=== PATIENT | female | born 1955 | race African-American/Black ===

== ENCOUNTER 2018-03-11 12:20 | Inpatient (IN) | payer OTHER ==
[2018-03-11 14:07] VITALS: BMI 21.9
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
[2018-03-11] MEDS ORDERED: MAG HYDROX/AL HYDROX/SIMETH 30 ML UNIT-DOSE CUP PO PRN (16:52)
[2018-03-11] MEDS ORDERED: MENTHOL/PHENOL 1 EACH UD MM PRN (16:52)
[2018-03-11] MEDS ORDERED: P-EPHED 60MG/TRIPROLIDI 2.5MG TABLET PO PRN (16:52)
[2018-03-11] MEDS ORDERED: ACETAMINOPHEN 325 MG TABLET (FP) PO PRN (16:52)
[2018-03-11] MEDS ORDERED: LOPERAMIDE HCL 2 MG CAPSULE PO PRN (16:52)
[2018-03-11] MEDS ORDERED: MAGNESIUM HYDROX 2400MG/30ML ORAL SUSPENSION 30 ML CUP PO PRN (16:52)
[2018-03-11] MEDS ORDERED: MAGNESIUM CITRATE 300 ML BOTTLE PO PRN (16:52)
[2018-03-11] MEDS ORDERED: ALBUTEROL SO4 18 GM HFA INHALER IH PRN (16:54)
[2018-03-11] MEDS: metFORMIN HCL 500 MG TABLET (FP) PO SCH (18:52)
[2018-03-11] MEDS ORDERED: TUBERCULIN PPD 5 TU/0.1ML VIAL ID ONE (18:52)
[2018-03-11] MEDS: levETIRAcetam 500 MG TABLET (FP) PO SCH (21:55)
[2018-03-11] MEDS: GABAPENTIN 300 MG CAPSULE (FP) PO SCH (21:55)
[2018-03-11] MEDS: THIAMINE HCL 100 MG TABLET (FP) PO SCH (21:55)
[2018-03-11] MEDS: INSULIN (LEVEMIR) 100 UNITS/ML UNITS SQ SCH (21:56)
[2018-03-11] MEDS: CYCLOBENZAPRINE HCL 10 MG TABLET (FP) PO PRN (21:58)
[2018-03-11] MEDS ORDERED: MELATONIN 5 MG TABLETS PO PRN (22:00)
[2018-03-11 23:21] LABS: URINE APPEARANCE CLOUDY; URINE BILIRUBIN NEGATIVE (<2.0 mg/dL); URINE COLOR DKYELLOW; URINE GLUCOSE (UA) NEGATIVE (NEGATIVE); URINE KETONE NEGATIVE (NEGATIVE); URINE NITRITE NEGATIVE (NEGATIVE); URINE PROTEIN NEGATIVE (NEGATIVE); URINE UROBILINOGEN NEGATIVE mg/dL (0.2-1.0)
[2018-03-11 23:25] LABS: URINE LEUK ESTERASE 3+ (NEGATIVE)
[2018-03-11 23:33] LABS: EPI CELLS MODERATE /HPF (FEW); URINE BACTERIA RARE /hpf (NONE SEEN); URINE HYALINE CAST 2 /lpf; URINE MUCUS RARE
[2018-03-12] MEDS: GABAPENTIN 300 MG CAPSULE (FP) PO SCH ×3 (07:00→22:23)
[2018-03-12] MEDS: metFORMIN HCL 500 MG TABLET (FP) PO SCH ×2 (07:01→17:09)
--- NOTE | 2018-03-12 08:47 | EKG ---
Test Reason : Blood Pressure : / mmHG Vent. Rate : 084 BPM Atrial Rate : 084 BPM P-R Int : 162 ms QRS Dur : 080 ms QT Int : 360 ms P-R-T Axes : 084 066 075 degrees QTc Int : 425 ms NORMAL SINUS RHYTHM RIGHT ATRIAL ENLARGEMENT SEPTAL INFARCT , AGE UNDETERMINED ABNORMAL ECG NO PREVIOUS ECGS AVAILABLE Confirmed by VIVI VILLAFANA MD ([id number]) on 03/12/2018 8:47:24 AM Referred By: Confirmed By:VIVI VILLAFANA MD
[2018-03-12] MEDS: INSULIN SLIDING SCALE (NOVOLOG) 1 VIAL SQ SCH ×2 (09:02→17:09)
[2018-03-12] MEDS: levETIRAcetam 500 MG TABLET (FP) PO SCH ×2 (10:34→22:25)
[2018-03-12] MEDS: PRENATAL VITAMINS W/ FOLIC ACID TABLET (FP) PO SCH (10:34)
[2018-03-12] MEDS: LISINOPRIL 10 MG TABLET (FP) PO SCH (10:34)
[2018-03-12] MEDS: CYCLOBENZAPRINE HCL 10 MG TABLET (FP) PO PRN ×2 (10:35→18:13)
[2018-03-12 12:12] LABS: HEMATOCRIT 23.9 % (32.4-45.2); HEMOGLOBIN 7.3 GM/dL (10.7-15.3); MCH 24.8 pg (25.7-33.7); MCHC 30.5 g/dl (32.0-36.0); MEAN CELL VOLUME 81.2 fl (80-96); MEAN PLT VOLUME 8.1 fl (7.5-11.1); PLATELET COUNT 440 K/MM3 (134-434); RBC 2.94 M/mm3 (3.60-5.2); RDW 20.2 % (11.6-15.6); WHITE BLOOD COUNT 7.7 K/mm3 (4.0-10.0)
[2018-03-12 12:44] LABS: ANION GAP 8 (8-16); BILIRUBIN,TOTAL 0.3 mg/dL (0.2-1.0); BLOOD UREA NITROGEN 20 mg/dL (7-18); CALCIUM 8.7 mg/dL (8.5-10.1); CHLORIDE 108 mmol/L (98-107); CO2 28 mmol/L (21-32); CREATININE 0.5 mg/dL (0.55-1.02); GLUCOSE,RANDOM 65 mg/dL (74-106); POTASSIUM 4.5 mmol/L (3.5-5.1); SGOT/AST 14 U/L (15-37); SGPT/ALT 17 U/L (12-78); SODIUM 144 mmol/L (136-145); TOT PROT 5.7 g/dl (6.4-8.2)
[2018-03-12 12:45] LABS: ALK PHOS 56 U/L (45-117)
[2018-03-12 13:08] LABS: SICKLE CELL SCREEN NEG (NEGATIVE)
--- NOTE | 2018-03-12 15:51 | PN ---
S Progress Note Note: called to enter Trazodone 100 mg po hs, order placed, confirmed as per reconciliation list
[2018-03-12] MEDS: INSULIN (LEVEMIR) 100 UNITS/ML UNITS SQ SCH (22:21)
[2018-03-12] MEDS: THIAMINE HCL 100 MG TABLET (FP) PO SCH (22:23)
[2018-03-12] MEDS: traZODone HCL 100 MG TABLET (FP) PO SCH (22:25)
[2018-03-12] MEDS: guaiFENesin/D-METHORPHAN HB 10 ML UNIT-DOSE CUPS PO PRN (22:27)
[2018-03-12] MEDS ORDERED: PT OWN MED DRAWER 7, Y5N ONE (22:31)
[2018-03-13] MEDS: GABAPENTIN 300 MG CAPSULE (FP) PO SCH ×3 (06:57→22:01)
[2018-03-13] MEDS: CYCLOBENZAPRINE HCL 10 MG TABLET (FP) PO PRN ×2 (06:59→17:44)
[2018-03-13] MEDS: metFORMIN HCL 500 MG TABLET (FP) PO SCH ×2 (07:00→17:10)
[2018-03-13] MEDS: INSULIN SLIDING SCALE (NOVOLOG) 1 VIAL SQ SCH ×2 (07:02→17:10)
[2018-03-13] MEDS: PRENATAL VITAMINS W/ FOLIC ACID TABLET (FP) PO SCH (10:21)
[2018-03-13] MEDS: levETIRAcetam 500 MG TABLET (FP) PO SCH ×2 (10:21→22:01)
[2018-03-13] MEDS: IBUPROFEN 400 MG TABLET (FP) PO PRN (10:22)
[2018-03-13] MEDS: LISINOPRIL 10 MG TABLET (FP) PO SCH (10:22)
[2018-03-13] MEDS: THIAMINE HCL 100 MG TABLET (FP) PO SCH (22:01)
[2018-03-13] MEDS: traZODone HCL 100 MG TABLET (FP) PO SCH (22:01)
[2018-03-13] MEDS: INSULIN (LEVEMIR) 100 UNITS/ML UNITS SQ SCH (22:02)
[2018-03-13] MEDS: guaiFENesin/D-METHORPHAN HB 10 ML UNIT-DOSE CUPS PO PRN (22:20)
[2018-03-14] MEDS: GABAPENTIN 300 MG CAPSULE (FP) PO SCH ×3 (06:40→22:02)
[2018-03-14] MEDS: CYCLOBENZAPRINE HCL 10 MG TABLET (FP) PO PRN ×2 (06:41→17:09)
[2018-03-14] MEDS: INSULIN SLIDING SCALE (NOVOLOG) 1 VIAL SQ SCH ×2 (06:41→17:10)
[2018-03-14] MEDS: metFORMIN HCL 500 MG TABLET (FP) PO SCH ×2 (07:54→17:09)
[2018-03-14] MEDS: levETIRAcetam 500 MG TABLET (FP) PO SCH ×2 (09:37→22:02)
[2018-03-14] MEDS: LISINOPRIL 10 MG TABLET (FP) PO SCH (09:37)
[2018-03-14] MEDS: PRENATAL VITAMINS W/ FOLIC ACID TABLET (FP) PO SCH (09:37)
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
[2018-03-14] MEDS: IBUPROFEN 400 MG TABLET (FP) PO PRN (14:37)
[2018-03-14] MEDS: hydrOXYzine PAMOATE 50 MG CAPSULE (FP) PO PRN ×2 (14:37→22:04)
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
[2018-03-14] MEDS: THIAMINE HCL 100 MG TABLET (FP) PO SCH (22:02)
[2018-03-14] MEDS: traZODone HCL 50 MG TABLET (FP) PO SCH (22:02)
[2018-03-14] MEDS: INSULIN (LEVEMIR) 100 UNITS/ML UNITS SQ SCH (22:03)
[2018-03-14] MEDS: guaiFENesin/D-METHORPHAN HB 10 ML UNIT-DOSE CUPS PO PRN (22:05)
[2018-03-15] MEDS: GABAPENTIN 300 MG CAPSULE (FP) PO SCH ×3 (06:28→21:52)
[2018-03-15] MEDS: INSULIN SLIDING SCALE (NOVOLOG) 1 VIAL SQ SCH ×2 (06:29→16:43)
[2018-03-15] MEDS: metFORMIN HCL 500 MG TABLET (FP) PO SCH ×2 (07:11→16:42)
[2018-03-15] MEDS: PRENATAL VITAMINS W/ FOLIC ACID TABLET (FP) PO SCH (09:44)
[2018-03-15] MEDS: levETIRAcetam 500 MG TABLET (FP) PO SCH ×2 (09:44→21:52)
[2018-03-15] MEDS: LISINOPRIL 10 MG TABLET (FP) PO SCH (09:44)
--- NOTE | 2018-03-15 13:40 | PN ---
[facility] Progress Note Note: Patient with consistently low blood pressure on lisinopril 10 mg and vertigo. Vital Signs (72 hours) 03/13/18 03/13/18 03/13/18 00:30 03:30 07:18 Temperature 97.8 F Pulse Rate 98 H Respiratory 18 18 18 Rate Blood Pressure 101/59 03/13/18 03/13/18 03/13/18 10:00 17:05 17:29 Temperature 97.9 F Pulse Rate 101 H 94 H 97 H Respiratory 18 Rate Blood Pressure 107/66 98/58 106/61 03/14/18 03/14/18 03/14/18 00:30 07:18 09:25 Temperature 97.7 F Pulse Rate 98 H 76 Respiratory 16 18 Rate Blood Pressure 94/55 93/56 03/14/18 03/15/18 03/15/18 14:47 03:30 07:02 Temperature 97.8 F Pulse Rate 92 H 110 H Respiratory 16 16 Rate Blood Pressure 100/61 95/52 03/15/18 09:20 Temperature Pulse Rate 80 Respiratory Rate Blood Pressure 98/60 Laboratory Last Values WBC 7.7 K/mm3 (4.0-10.0) 03/12/18 09:00 RBC 2.94 M/mm3 (3.60-5.2) L 03/12/18 09:00 Hgb 7.3 GM/dL (10.7-15.3) L 03/12/18 09:00 Hct 23.9 % (32.4-45.2) L 03/12/18 09:00 MCV 81.2 fl (80-96) 03/12/18 09:00 MCH 24.8 pg (25.7-33.7) L 03/12/18 09:00 MCHC 30.5 g/dl (32.0-36.0) L 03/12/18 09:00 RDW 20.2 % (11.6-15.6) H 03/12/18 09:00 Plt Count 440 K/MM3 (134-434) H 03/12/18 09:00 MPV 8.1 fl (7.5-11.1) 03/12/18 09:00 Sickle Cell Screen Neg (NEGATIVE) 03/12/18 09:00 Sodium 144 mmol/L (136-145) 03/12/18 09:00 Potassium 4.5 mmol/L (3.5-5.1) 03/12/18 09:00 Chloride 108 mmol/L (98-107) H 03/12/18 09:00 Carbon Dioxide 28 mmol/L (21-32) 03/12/18 09:00 Anion Gap 8 (8-16) 03/12/18 09:00 BUN 20 mg/dL (7-18) H 03/12/18 09:00 Creatinine 0.5 mg/dL (0.55-1.02) L 03/12/18 09:00 Creat Clearance w eGFR > 60 (>60) 03/12/18 09:00 POC Glucometer 82 UNITS (80-120) 03/15/18 06:28 Random Glucose 65 mg/dL (74-106) L 03/12/18 09:00 Calcium 8.7 mg/dL (8.5-10.1) 03/12/18 09:00 Total Bilirubin 0.3 mg/dL (0.2-1.0) 03/12/18 09:00 AST 14 U/L (15-37) L 03/12/18 09:00 ALT 17 U/L (12-78) 03/12/18 09:00 Alkaline Phosphatase 56 U/L (45-117) 03/12/18 09:00 Total Protein 5.7 g/dl (6.4-8.2) L 03/12/18 09:00 Albumin 3.0 g/dl (3.4-5.0) L 03/12/18 09:00 Urine Color Dkyellow 03/11/18 19:09 Urine Appearance Cloudy 03/11/18 19:09 Urine pH 5.0 (5.0-8.0) 03/11/18 19:09 Ur Specific [place] 1.026 (1.001-1.035) 03/11/18 19:09 Urine Protein Negative (NEGATIVE) 03/11/18 19:09 Urine Glucose (UA) Negative (NEGATIVE) 03/11/18 19:09 Urine Ketones Negative (NEGATIVE) 03/11/18 19:09 Urine Blood Negative (NEGATIVE) 03/11/18 19:09 Urine Nitrite Negative (NEGATIVE) 03/11/18 19:09 Urine Bilirubin Negative (<2.0 mg/dL) 03/11/18 19:09 Urine Urobilinogen Negative mg/dL (0.2-1.0) 03/11/18 19:09 Ur Leukocyte Esterase 3+ (NEGATIVE) H 03/11/18 19:09 Urine WBC (Auto) 27 /hpf (3-5) 03/11/18 19:09 Urine RBC (Auto) 2 /hpf (0-3) 03/11/18 19:09 Ur Epithelial Cells Moderate /HPF (FEW) 03/11/18 19:09 Urine Bacteria Rare /hpf (NONE SEEN) 03/11/18 19:09 Hyaline Casts 2 /lpf 03/11/18 19:09 Urine Mucus Rare 03/11/18 19:09 Levetiracetam 9.1 MCG/ML (10.0-40.0) L 03/12/18 09:30 RPR Titer Nonreactive (NONREACTIVE) 03/12/18 09:00 HIV 1&2 Antibody Screen Negative 03/12/18 09:00 HIV P24 Antigen Negative 03/12/18 09:00 Patient's medications reviewed. Lisinopril changed from 10 mg to 5mg starting . D/c flexeril d/t increase fall risk in elderly, change to Tizanidine 2mg TID PRN for back pain. Abnormal labs: repeat CBC, keppra and urine culture. x-ray results pending fall risk precautions continue to monitor
[2018-03-15] MEDS ORDERED: INSULIN (NOVOLOG) ASPART 100 UNITS/ML 10ML VIAL ONE (16:45)
[2018-03-15] MEDS: hydrOXYzine PAMOATE 50 MG CAPSULE (FP) PO PRN ×2 (16:46→21:53)
[2018-03-15] MEDS: TIZANIDINE HCL 2 MG TABLET PO PRN (16:46)
[2018-03-15] MEDS: traZODone HCL 50 MG TABLET (FP) PO SCH (21:52)
[2018-03-15] MEDS: THIAMINE HCL 100 MG TABLET (FP) PO SCH (21:52)
[2018-03-15] MEDS: guaiFENesin/D-METHORPHAN HB 10 ML UNIT-DOSE CUPS PO PRN (21:55)
[2018-03-15] MEDS: IBUPROFEN 400 MG TABLET (FP) PO PRN (21:55)
[2018-03-15] MEDS: INSULIN (LEVEMIR) 100 UNITS/ML UNITS SQ SCH (22:16)
[2018-03-16] MEDS: GABAPENTIN 300 MG CAPSULE (FP) PO SCH ×2 (06:44→13:36)
[2018-03-16] MEDS: INSULIN SLIDING SCALE (NOVOLOG) 1 VIAL SQ SCH ×2 (06:45→17:39)
[2018-03-16] MEDS: metFORMIN HCL 500 MG TABLET (FP) PO SCH ×2 (07:56→17:39)
[2018-03-16] MEDS: PRENATAL VITAMINS W/ FOLIC ACID TABLET (FP) PO SCH (09:15)
[2018-03-16] MEDS: levETIRAcetam 500 MG TABLET (FP) PO SCH (09:15)
[2018-03-16] MEDS: hydrOXYzine PAMOATE 50 MG CAPSULE (FP) PO PRN (09:15)
[2018-03-16] MEDS: TIZANIDINE HCL 2 MG TABLET PO PRN (09:15)
[2018-03-16] MEDS ORDERED: LISINOPRIL 5 MG TABLET (FP) PO SCH (10:00)
[2018-03-16] MEDS ORDERED: diphenhydrAMINE HCL 50 MG CAPSULE PO PRN ×2 (10:31→10:33)
[2018-03-16 10:50] LABS: BASO % 1.2 % (0-2.0); HEMATOCRIT 21.9 % (32.4-45.2); LYMPH % 23.4 % (8-40); MCH 25.1 pg (25.7-33.7); MCHC 31.4 g/dl (32.0-36.0); MEAN CELL VOLUME 80.2 fl (80-96); MEAN PLT VOLUME 7.8 fl (7.5-11.1); MONO % 13.8 % (3.8-10.2); NEUT % 58.6 % (42.8-82.8); PLATELET COUNT 404 K/MM3 (134-434); RBC 2.73 M/mm3 (3.60-5.2); RDW 20.6 % (11.6-15.6); WHITE BLOOD COUNT 6.2 K/mm3 (4.0-10.0)
[2018-03-16 11:37] LABS: HEMOGLOBIN 6.9 GM/dL (10.7-15.3)
--- NOTE | 2018-03-16 12:54 | PN ---
[facility] Progress Note Note: Notified by RN critical lab called with HGB 6.9. Laboratory Tests 03/11/18 03/11/18 03/11/18 16:24 18:49 19:09 WBC RBC Hgb Hct MCV MCH MCHC RDW Plt Count MPV Neutrophils % Lymphocytes % Monocytes % Eosinophils % Basophils % Nucleated RBC % Sickle Cell Screen Sodium Potassium Chloride Carbon Dioxide Anion Gap BUN Creatinine Creat Clearance w eGFR POC Glucometer 222 209 Random Glucose Calcium Total Bilirubin AST ALT Alkaline Phosphatase Total Protein Albumin Urine Color Dkyellow Urine Appearance Cloudy Urine pH 5.0 Ur Specific [place] 1.026 Urine Protein Negative Urine Glucose (UA) Negative Urine Ketones Negative Urine Blood Negative Urine Nitrite Negative Urine Bilirubin Negative Urine Urobilinogen Negative Ur Leukocyte Esterase 3+ H Urine WBC (Auto) 27 Urine RBC (Auto) 2 Ur Epithelial Cells Moderate Urine Bacteria Rare Hyaline Casts 2 Urine Mucus Rare Levetiracetam RPR Titer HIV 1&2 Antibody Screen HIV P24 Antigen 03/11/18 03/12/18 03/12/18 21:54 06:59 09:00 WBC 7.7 RBC 2.94 L Hgb 7.3 L Hct 23.9 L MCV 81.2 MCH 24.8 L MCHC 30.5 L RDW 20.2 H Plt Count 440 H MPV 8.1 Neutrophils % Lymphocytes % Monocytes % Eosinophils % Basophils % Nucleated RBC % Sickle Cell Screen Neg Sodium Potassium Chloride Carbon Dioxide Anion Gap BUN Creatinine Creat Clearance w eGFR POC Glucometer 156 102 Random Glucose Calcium Total Bilirubin AST ALT Alkaline Phosphatase Total Protein Albumin Urine Color Urine Appearance Urine pH Ur Specific [place] Urine Protein Urine Glucose (UA) Urine Ketones Urine Blood Urine Nitrite Urine Bilirubin Urine Urobilinogen Ur Leukocyte Esterase Urine WBC (Auto) Urine RBC (Auto) Ur Epithelial Cells Urine Bacteria Hyaline Casts Urine Mucus Levetiracetam RPR Titer HIV 1&2 Antibody Screen HIV P24 Antigen 03/12/18 03/12/18 03/12/18 09:00 09:00 09:00 WBC RBC Hgb Hct MCV MCH MCHC RDW Plt Count MPV Neutrophils % Lymphocytes % Monocytes % Eosinophils % Basophils % Nucleated RBC % Sickle Cell Screen Sodium 144 Potassium 4.5 Chloride 108 H Carbon Dioxide 28 Anion Gap 8 BUN 20 H Creatinine 0.5 L Creat Clearance w eGFR > 60 POC Glucometer Random Glucose 65 L Calcium 8.7 Total Bilirubin 0.3 AST 14 L ALT 17 Alkaline Phosphatase 56 Total Protein 5.7 L Albumin 3.0 L Urine Color Urine Appearance Urine pH Ur Specific [place] Urine Protein Urine Glucose (UA) Urine Ketones Urine Blood Urine Nitrite Urine Bilirubin Urine Urobilinogen Ur Leukocyte Esterase Urine WBC (Auto) Urine RBC (Auto) Ur Epithelial Cells Urine Bacteria Hyaline Casts Urine Mucus Levetiracetam RPR Titer Nonreactive HIV 1&2 Antibody Screen Negative HIV P24 Antigen Negative 03/12/18 03/12/18 03/12/18 09:30 17:06 22:21 WBC RBC Hgb Hct MCV MCH MCHC RDW Plt Count MPV Neutrophils % Lymphocytes % Monocytes % Eosinophils % Basophils % Nucleated RBC % Sickle Cell Screen Sodium Potassium Chloride Carbon Dioxide Anion Gap BUN Creatinine Creat Clearance w eGFR POC Glucometer 145 166 Random Glucose Calcium Total Bilirubin AST ALT Alkaline Phosphatase Total Protein Albumin Urine Color Urine Appearance Urine pH Ur Specific [place] Urine Protein Urine Glucose (UA) Urine Ketones Urine Blood Urine Nitrite Urine Bilirubin Urine Urobilinogen Ur Leukocyte Esterase Urine WBC (Auto) Urine RBC (Auto) Ur Epithelial Cells Urine Bacteria Hyaline Casts Urine Mucus Levetiracetam 9.1 L RPR Titer HIV 1&2 Antibody Screen HIV P24 Antigen 03/13/18 03/13/18 03/13/18 06:56 16:43 22:00 WBC RBC Hgb Hct MCV MCH MCHC RDW Plt Count MPV Neutrophils % Lymphocytes % Monocytes % Eosinophils % Basophils % Nucleated RBC % Sickle Cell Screen Sodium Potassium Chloride Carbon Dioxide Anion Gap BUN Creatinine Creat Clearance w eGFR POC Glucometer 86 150 190 Random Glucose Calcium Total Bilirubin AST ALT Alkaline Phosphatase Total Protein Albumin Urine Color Urine Appearance Urine pH Ur Specific [place] Urine Protein Urine Glucose (UA) Urine Ketones Urine Blood Urine Nitrite Urine Bilirubin Urine Urobilinogen Ur Leukocyte Esterase Urine WBC (Auto) Urine RBC (Auto) Ur Epithelial Cells Urine Bacteria Hyaline Casts Urine Mucus Levetiracetam RPR Titer HIV 1&2 Antibody Screen HIV P24 Antigen 03/14/18 03/14/18 03/14/18 06:39 17:05 22:01 WBC RBC Hgb Hct MCV MCH MCHC RDW Plt Count MPV Neutrophils % Lymphocytes % Monocytes % Eosinophils % Basophils % Nucleated RBC % Sickle Cell Screen Sodium Potassium Chloride Carbon Dioxide Anion Gap BUN Creatinine Creat Clearance w eGFR POC Glucometer 149 144 155 Random Glucose Calcium Total Bilirubin AST ALT Alkaline Phosphatase Total Protein Albumin Urine Color Urine Appearance Urine pH Ur Specific [place] Urine Protein Urine Glucose (UA) Urine Ketones Urine Blood Urine Nitrite Urine Bilirubin Urine Urobilinogen Ur Leukocyte Esterase Urine WBC (Auto) Urine RBC (Auto) Ur Epithelial Cells Urine Bacteria Hyaline Casts Urine Mucus Levetiracetam RPR Titer HIV 1&2 Antibody Screen HIV P24 Antigen 03/15/18 03/15/18 03/15/18 06:28 16:42 21:50 WBC RBC Hgb Hct MCV MCH MCHC RDW Plt Count MPV Neutrophils % Lymphocytes % Monocytes % Eosinophils % Basophils % Nucleated RBC % Sickle Cell Screen Sodium Potassium Chloride Carbon Dioxide Anion Gap BUN Creatinine Creat Clearance w eGFR POC Glucometer 82 156 205 Random Glucose Calcium Total Bilirubin AST ALT Alkaline Phosphatase Total Protein Albumin Urine Color Urine Appearance Urine pH Ur Specific [place] Urine Protein Urine Glucose (UA) Urine Ketones Urine Blood Urine Nitrite Urine Bilirubin Urine Urobilinogen Ur Leukocyte Esterase Urine WBC (Auto) Urine RBC (Auto) Ur Epithelial Cells Urine Bacteria Hyaline Casts Urine Mucus Levetiracetam RPR Titer HIV 1&2 Antibody Screen HIV P24 Antigen 03/16/18 03/16/18 06:43 07:30 WBC 6.2 RBC 2.73 L Hgb 6.9 L* Hct 21.9 L MCV 80.2 MCH 25.1 L MCHC 31.4 L RDW 20.6 H Plt Count 404 MPV 7.8 Neutrophils % 58.6 Lymphocytes % 23.4 Monocytes % 13.8 H Eosinophils % 3.0 Basophils % 1.2 Nucleated RBC % 1 H Sickle Cell Screen Sodium Potassium Chloride Carbon Dioxide Anion Gap BUN Creatinine Creat Clearance w eGFR POC Glucometer 132 Random Glucose Calcium Total Bilirubin AST ALT Alkaline Phosphatase Total Protein Albumin Urine Color Urine Appearance Urine pH Ur Specific [place] Urine Protein Urine Glucose (UA) Urine Ketones Urine Blood Urine Nitrite Urine Bilirubin Urine Urobilinogen Ur Leukocyte Esterase Urine WBC (Auto) Urine RBC (Auto) Ur Epithelial Cells Urine Bacteria Hyaline Casts Urine Mucus Levetiracetam RPR Titer HIV 1&2 Antibody Screen HIV P24 Antigen Vital Signs Temperature 97.9 F 03/16/18 07:23 Pulse Rate 105 H 03/16/18 10:00 Respiratory Rate 18 03/16/18 07:23 Blood Pressure 114/65 03/16/18 10:00 O2 Sat by Pulse Oximetry (%) Subj: Patient denies CP, SOB, Dizziness and headache. Obj: General: alert and oriented x3. In no acute distress. Ambulating within unit with cane. Skin: warm and dry and intact Car: S1S2 Resp: CTA BL A/P Critically low Hgb 6.9 Anemia Patient transferred to [facility] [place] ER for evaluation Report given to Dr. Calhoun
[2018-03-16 13:01] VITALS: BP 115/66; PULSE 101; TEMP 97.5
[2018-03-16 14:09] LABS: ANISOCYTOSIS 1+; PLATELET ESTIMATE NORMAL
== END 2018-03-16 20:40 | disposition short-term general hospital (02) | DRG 772 ==
LOC: YASAS 12:20 → Y3E 17:29
PROVIDERS: ADMIT Psychiatry & Neurology Psychiatry; ATTEND Psychiatry & Neurology Psychiatry
PROC: HZ42ZZZ Group Counseling for Substance Abuse Treatment, Cognitive-Behavioral (ICD-10-PCS; principal; 2018-03-11)
DX: F11.20 Opioid dependence, uncomplicated (principal); F41.9 Anxiety disorder, unspecified; I10 Essential (primary) hypertension; E11.9 Type 2 diabetes mellitus without complications; Z79.4 Long term (current) use of insulin; K21.9 Gastro-esophageal reflux disease without esophagitis; K86.89 Other specified diseases of pancreas; D64.9 Anemia, unspecified; G40.909 Epilepsy, unspecified, not intractable, without status epilepticus; Z63.4 Disappearance and death of family member
CPT/HCPCS: 36415; 73110-TC-RT-FY; 73130-TC-RT-FY; 80053; 81003; 81015; 82962; 85025; 85027; 85660; 86593; 87086; 87389; 93005; 93010

== ENCOUNTER 2018-03-16 13:32 | Inpatient (IN) | payer OTHER ==
--- NOTE | 2018-03-16 13:46 | PDOC ---
History of Present Illness - General Stated Complaint: Revisit, Lab Variance Time Seen by Provider: 03/16/18 13:46 - History of Present Illness Initial Comments: 03/16/18 13:48 Ms. Goldstein is a 62 yo female w/ pmh of opioid dependence, heroin abuse, COPD, DM, HTN, seizure disorder, Pancreatic mass, cholecystectomy, hysterectomy, vulvar skin cancer, and GERD who [facility] after she was found to have anemia today with Hg 6.9. Patient reports she has had "over 30 transfusions " in the past for anemia and been evaluated several times however no one has been able to find a cause. Ms. Goldstein further reports she has had generalized weakness over the past couple of days with frontal headache and shortness of breath both at rest and on exertion. She further endorses left sided abdominal pain, burning with urination, and increased frequency along with dark stools recently. The patient denies chest pain and dizziness. Denies fever, chills, nausea, vomit , diarrhea and constipation. Allergies: Penicillin Past History - Past Medical History Allergies/Adverse Reactions: Allergies Allergy/AdvReac Type Severity Reaction Status Date / Time tomato Allergy Severe Verified 03/11/18 16:57 Penicillins Allergy Intermediate Cough Verified 03/11/18 16:52 Home Medications: Ambulatory Orders Albuterol Sulfate Inhaler - [Ventolin Hfa Inhaler -] 2 inh PO Q4H PRN 03/11/18 Gabapentin [Neurontin] 600 mg PO TID 03/11/18 Insulin Detemir [Levemir Flextouch] 25 unit SQ HS 03/11/18 Ipratropium/Albuterol Sulfate [Combivent Respimat Inhal [place]] 4 gm IH BID 03/11 Lisinopril 10 mg PO DAILY 03/11/18 Metformin HCl [Glucophage] 500 mg PO BID 03/11/18 Trazodone HCl 100 mg PO HS 03/11/18 levETIRAcetam [Keppra -] 500 mg PO BID 03/11/18 Anemia: Yes (Fe supplement) Asthma: No Cancer: No Cardiac Disorders: No CVA: No COPD: Yes CHF: No Dementia: No Diabetes: Yes (dx 15 years) GI Disorders: Yes (Cholecystectomy) Disorders: Yes (endometriosis) HTN: Yes Hypercholesterolemia: No Kidney Stones: No Liver Disease: No Seizures: Yes (since chilhood) Thyroid Disease: No - Surgical History Abdominal Surgery: No Appendectomy: No Cardiac Surgery: No Cholecystectomy: Yes () Lung Surgery: No Neurologic Surgery: No Orthopedic Surgery: No - Reproductive History PID: No - Suicide/Smoking/Psychosocial Hx Smoking History: Former smoker Have you smoked in the past 12 months: No Hx Alcohol Use: No Drug/Substance Use Hx: Yes Substance Use Type: Heroin (7 bags daily.) Hx Substance Use Treatment: No Review of Systems - Review of Systems Comments:: 03/16/18 13:48 GENERAL/CONSTITUTIONAL: +Generalized weakness. No fever or chills. HEAD, EYES, EARS, NOSE AND THROAT: No change in vision. No ear pain or discharge. No sore throat. CARDIOVASCULAR: +Shortness of breath w/ exertion and at rest. No chest pain RESPIRATORY: No cough, wheezing, or hemoptysis. GASTROINTESTINAL: +Left sided abdominal pain. No nausea, vomiting, diarrhea or constipation. GENITOURINARY: +Recent frequency and dysuria MUSCULOSKELETAL: No joint or muscle swelling or pain. No neck or back pain. SKIN: No rash NEUROLOGIC: +Midline headache. No vertigo, loss of consciousness, or change in strength/sensation. ENDOCRINE: No increased thirst. No abnormal weight change HEMATOLOGIC/LYMPHATIC: +Known anemia. No easy bleeding or history of blood clots. ALLERGIC/IMMUNOLOGIC: No hives or skin allergy. *Physical Exam - Physical Exam Comments: 03/16/18 13:48 GENERAL: Awake, alert, and fully oriented, in no acute distress HEAD: No signs of trauma, normocephalic, atraumatic EYES: PERRLA, EOMI, sclera anicteric, conjunctiva clear ENT: Auricles normal inspection, hearing grossly normal, nares patent, oropharynx clear without exudates. Moist mucosa NECK: Normal ROM, supple, no lymphadenopathy, JVD, or masses LUNGS: No distress, speaks full sentences, clear to auscultation bilaterally HEART: Regular rate and rhythm, normal S1 and S2, no murmurs, rubs or gallops, peripheral pulses normal and equal bilaterally. ABDOMEN: +Left sided abdominal TTP. Soft, normoactive bowel sounds. No guarding , no rebound. No masses EXTREMITIES: Normal inspection, Normal range of motion, no edema. No clubbing or cyanosis. NEUROLOGICAL: Cranial nerves II through XII grossly intact. Normal speech, normal gait, no focal sensorimotor deficits SKIN: Warm, Dry, normal turgor, no rashes or lesions noted. ED Treatment Course - LABORATORY CBC & Chemistry Diagram: 03/16/18 14:45 03/16/18 14:45 Medical Decision Making - Medical Decision Making 03/16/18 14:32 Ms. Goldstein is a 62 yo female w/ pmh as described who presents for evaluation of anemia noted at rehab earlier today. Corresponding workup begun to confirm and r /o active bleeding at this time. 03/16/18 17:40 Patient noted to be anemic w/ H/H 6.8/21.9. Retype sent to lab and [address] abdomen negative for acute process. Patient currently being transfused; admitting to observation for further evaluation. 03/16/18 18:04 Patient admitted for observation. Laboratory Results - last 24 hr 03/16/18 03/16/18 03/16/18 14:19 14:45 14:45 WBC 7.1 RBC 2.73 L Hgb 6.8 L* Hct 21.9 L MCV 80.2 MCH 25.1 L MCHC 31.2 L RDW 20.8 H Plt Count 377 MPV 7.6 Neutrophils % 65.5 Lymphocytes % 17.2 D Monocytes % 13.8 H Eosinophils % 2.5 Basophils % 1.0 Nucleated RBC % 1 H PT with INR INR PTT (Actin FS) Sodium 142 Potassium 4.2 Chloride 107 Carbon Dioxide 32 Anion Gap 3 L BUN 18 Creatinine 0.6 Creat Clearance w eGFR > 60 Random Glucose 106 Calcium 8.4 L Total Bilirubin 0.1 L D AST 10 L ALT 15 Alkaline Phosphatase 68 Total Protein 5.5 L Albumin 2.9 L Urine Color Urine Appearance Urine pH Ur Specific [place] Urine Protein Urine Glucose (UA) Urine Ketones Urine Blood Urine Nitrite Urine Bilirubin Urine Urobilinogen Ur Leukocyte Esterase Stool Occult Blood Negative Blood Type Antibody Screen Crossmatch 03/16/18 03/16/18 03/16/18 14:45 14:45 15:24 WBC RBC Hgb Hct MCV MCH MCHC RDW Plt Count MPV Neutrophils % Lymphocytes % Monocytes % Eosinophils % Basophils % Nucleated RBC % PT with INR 10.70 INR 0.95 PTT (Actin FS) 29.1 Sodium Potassium Chloride Carbon Dioxide Anion Gap BUN Creatinine Creat Clearance w eGFR Random Glucose Calcium Total Bilirubin AST ALT Alkaline Phosphatase Total Protein Albumin Urine Color Urine Appearance Urine pH Ur Specific [place] Urine Protein Urine Glucose (UA) Urine Ketones Urine Blood Urine Nitrite Urine Bilirubin Urine Urobilinogen Ur Leukocyte Esterase Stool Occult Blood Blood Type A POSITIVE A POSITIVE Antibody Screen Negative Crossmatch See Detail 03/16/18 17:00 WBC RBC Hgb Hct MCV MCH MCHC RDW Plt Count MPV Neutrophils % Lymphocytes % Monocytes % Eosinophils % Basophils % Nucleated RBC % PT with INR INR PTT (Actin FS) Sodium Potassium Chloride Carbon Dioxide Anion Gap BUN Creatinine Creat Clearance w eGFR Random Glucose Calcium Total Bilirubin AST ALT Alkaline Phosphatase Total Protein Albumin Urine Color Yellow Urine Appearance Clear Urine pH 6.0 Ur Specific [place] 1.042 H Urine Protein Negative Urine Glucose (UA) Negative Urine Ketones Negative Urine Blood Negative Urine Nitrite Negative Urine Bilirubin Negative Urine Urobilinogen Negative Ur Leukocyte Esterase Negative Stool Occult Blood Blood Type Antibody Screen Crossmatch *DC/Admit/Observation/Transfer Diagnosis at time of Disposition: Anemia Qualifiers: Anemia type: unspecified type Qualified Code(s): D64.9 - Anemia, unspecified - Discharge Dispostion Decision to Admit order: Yes - Referrals Referrals: Belle Ivy MD [Primary Care Provider] - - Patient Instructions - Post Discharge Activity
[2018-03-16 14:02] VITALS: BMI 22.6
[2018-03-16] MEDS ORDERED: METOCLOPRAMIDE HCL INJECTION 10 MG/2 ML VIAL IVPB ONE (14:56)
[2018-03-16] MEDS ORDERED: ACETAMINOPHEN 1000 MG/100 ML VIAL (NON FORMULARY) IVPB ONE (14:56)
[2018-03-16] MEDS ORDERED: METOCLOPRAMIDE HCL INJECTION 10 MG/2 ML VIAL ONE (14:58)
[2018-03-16] MEDS ORDERED: ACETAMINOPHEN INJECTION 100 ML IVPB ONE (14:59)
--- NOTE | 2018-03-16 15:01 | PDOC ---
Attending Attestation - Resident Resident Name: Gabriele Garcia - ED Attending Attestation I have performed the following: I have examined & evaluated the patient, The case was reviewed & discussed with the resident, I agree w/resident's findings & plan, Exceptions are as noted - HPI HPI: 03/16/18 15:12 The patient is a 62 year old female, with a significant past medical history of heroin abuse, COPD, DM, HTN, seizure disorder, pancreatic mass not currently on treatment, cholecystectomy, hysterectomy, vulvar skin cancer, and GERD, who presents to the emergency department from [facility] for evaluation of generalized weakness for several days. Patient reports she was found to be anemic at [facility] today with a Hemoglobin of 6.9. Patient reports she has had 30+ transfusions in the past for anemia of unknown cause. Patient also reports a generalized gradual onset headache and some shortness of breath, exacerbated with exertion. She also reports left sided lower abdominal pain, dysuria, and frequency over the past couple of days, and states she was told she had a UTI which she was being treated for. Patient reports she is no longer being treated for the UTI and still is experiencing pain. She reports multiple episodes of dark stools, but denies any nausea, vomiting, diarrhea, constipation , or hematochezia. Allergies: Penicillins Past Surgical History: Cholecystectomy, Hysterectomy Social History: Former smoker, heroin abuse, and opioid dependence - Physicial Exam PE: 03/16/18 15:31 GENERAL: Awake, alert, and fully oriented, in no acute distress HEAD: No signs of trauma EYES: PERRLA, EOMI, sclera anicteric, conjunctiva clear ENT: Nares patent, oropharynx clear without exudates. Moist mucosa. Adentulous NECK: Normal ROM, supple, no lymphadenopathy, JVD, or masses LUNGS: Breath sounds equal, clear to auscultation bilaterally. No wheezes, and no crackles HEART: Regular rate and rhythm, normal S1 and S2, no murmurs, rubs or gallops ABDOMEN: Soft, +LLQ ttp, normoactive bowel sounds. No guarding, no rebound. No masses EXTREMITIES: Normal range of motion, no edema. No clubbing or cyanosis. No cords, erythema, or tenderness NEUROLOGICAL: Normal speech, cranial nerves intact, negative pronator drift, 5/ 5 strength in all 4 extremities, normal sensation to light touch in all 4 extremities, normal cerebellar exam, gait deferred SKIN: Warm, Dry, normal turgor, no rashes or lesions noted. - Medical Decision Making 03/16/18 15:32 62yo F with MMP presents to the ED with anemia to 6.8, generalized headache, and LLQ pain with known pancreatic mass. WIll check labs, CTAP, transfuse and admit.
[2018-03-16 15:09] LABS: INR 0.95 (0.82-1.09); PROTHROMBIN TIME (PATIENT) 10.7 SEC (9.7-13.0)
[2018-03-16 15:11] LABS: ACTIVATED PTT 29.1 SECONDS (26.9-34.4)
[2018-03-16 15:16] LABS: EOS % 2.5 % (0-4.5); HEMATOCRIT 21.9 % (32.4-45.2); LYMPH % 17.2 % (8-40); MCH 25.1 pg (25.7-33.7); MCHC 31.2 g/dl (32.0-36.0); MEAN CELL VOLUME 80.2 fl (80-96); MEAN PLT VOLUME 7.6 fl (7.5-11.1); MONO % 13.8 % (3.8-10.2); NEUT % 65.5 % (42.8-82.8); PLATELET COUNT 377 K/MM3 (134-434); RBC 2.73 M/mm3 (3.60-5.2); RDW 20.8 % (11.6-15.6); WHITE BLOOD COUNT 7.1 K/mm3 (4.0-10.0)
[2018-03-16 15:18] LABS: ALBUMIN 2.9 g/dl (3.4-5.0); ANION GAP 3 (8-16); BILIRUBIN,TOTAL 0.1 mg/dL (0.2-1.0); CALCIUM 8.4 mg/dL (8.5-10.1); CHLORIDE 107 mmol/L (98-107); CO2 32 mmol/L (21-32); CREATININE 0.6 mg/dL (0.55-1.02); GLUCOSE,RANDOM 106 mg/dL (74-106); POTASSIUM 4.2 mmol/L (3.5-5.1); SGOT/AST 10 U/L (15-37); SGPT/ALT 15 U/L (12-78); SODIUM 142 mmol/L (136-145); TOT PROT 5.5 g/dl (6.4-8.2)
[2018-03-16 15:21] LABS: HEMOGLOBIN 6.8 GM/dL (10.7-15.3)
[2018-03-16 15:32] LABS: ALK PHOS 68 U/L (45-117); BLOOD UREA NITROGEN 18 mg/dL (7-18)
[2018-03-16 17:17] LABS: URINE APPEARANCE CLEAR; URINE BILIRUBIN NEGATIVE (<2.0 mg/dL); URINE BLOOD NEGATIVE (NEGATIVE); URINE COLOR YELLOW; URINE GLUCOSE (UA) NEGATIVE (NEGATIVE); URINE KETONE NEGATIVE (NEGATIVE); URINE LEUK ESTERASE NEGATIVE (NEGATIVE); URINE NITRITE NEGATIVE (NEGATIVE); URINE PROTEIN NEGATIVE (NEGATIVE); URINE UROBILINOGEN NEGATIVE mg/dL (0.2-1.0)
[2018-03-16] MEDS ORDERED: FAMOTIDINE IV 20 MG/12 ML VIAL IVPB ONE (17:49)
[2018-03-16] MEDS ORDERED: FAMOTIDINE 20 MG/50 ML IVPB 20 MG/50 ML MG IVPB ONE (18:01)
[2018-03-16] MEDS ORDERED: MAG HYDROX/AL HYDROX/SIMETH 30 ML UNIT-DOSE CUP PO PRN (18:29)
--- NOTE | 2018-03-16 18:36 | HP ---
CHIEF COMPLAINT: PCP: HISTORY OF PRESENT ILLNESS: The patient is a 62 year old female, with a significant past medical history of heroin abuse, COPD, DM, HTN, seizure disorder, pancreatic mass not currently on treatment, cholecystectomy, hysterectomy, vulvar skin cancer, and GERD, who presents to the emergency department from [facility] for evaluation of generalized weakness and fatigue. Patient report that blood work at [facility] shows hmg 6.9 and she was sent to the ED for further evaluation. During exam, patient stated that she has had numerous blood transfusions in the past, apx 30 for anemia. She had a right subclavian mediport placed for her multiple transfusion dependence. She was told she had a mass in her pancreas and was to have a repeat MRI within 6 months but has not yet done so. In the Ed, hmg was 6.9 and 2 units of PRBC were ordered. ER course was notable for: (1) hmg 6.9 (2) 2 units of prbc (3) Recent Travel: PAST MEDICAL HISTORY: PAST SURGICAL HISTORY: Social History: Smoking: denies Alcohol: denies Drugs: denies Family History: Mother , had leukemia, father also had leukemia but of other causes Allergies tomato Allergy (Severe, Verified 03/11/18 16:57) Penicillins Allergy (Intermediate, Verified 03/11/18 16:52) Cough HOME MEDICATIONS: Home Medications Medication Instructions Recorded Albuterol Sulfate Inhaler - 2 inh PO Q4H PRN 03/11/18 [Ventolin Hfa Inhaler -] Gabapentin [Neurontin] 600 mg PO TID 03/11/18 Insulin Detemir [Levemir Flextouch] 25 unit SQ 03/11/18 Ipratropium/Albuterol Sulfate 4 gm IH BID 03/11/18 [Combivent Respimat Inhal [place]] Lisinopril 10 mg PO DAILY 03/11/18 Metformin HCl [Glucophage] 500 mg PO BID 03/11/18 Trazodone HCl 100 mg PO HS 03/11/18 levETIRAcetam [Keppra -] 500 mg PO BID 03/11/18 PHYSICAL EXAMINATION Vital Signs - 24 hr 03/16/18 03/16/18 03/16/18 13:55 17:11 17:30 Temperature 97.9 F 98.1 F 98.1 F Pulse Rate 88 Pulse Rate [ 80 79 Left Radial] Respiratory 20 17 17 Rate Blood Pressure 114/56 Blood Pressure 113/65 114/56 [Right Arm] O2 Sat by Pulse 94 L 95 95 Oximetry (%) GENERAL: Awake, alert, and fully oriented, in no acute distress. HEAD: Normal with no signs of trauma. EYES: Pupils equal, round and reactive to light, extraocular movements intact, sclera anicteric, conjunctiva clear. No lid lag. EARS, NOSE, THROAT: Ears normal, nares patent, oropharynx clear without exudates. Moist mucous membranes. NECK: Normal range of motion, supple without lymphadenopathy, JVD, or masses. LUNGS: Breath sounds equal, clear to auscultation bilaterally. No wheezes, and no crackles. No accessory muscle use. HEART: Regular rate and rhythm, normal S1 and S2 without murmur, rub or gallop. ABDOMEN: Soft, nontender, not distended, normoactive bowel sounds, no guarding, no rebound, no masses. No hepatomegaly or splenomegaly. MUSCULOSKELETAL: Normal range of motion at all joints. No bony deformities or tenderness. No CVA tenderness. UPPER EXTREMITIES: 2+ pulses, warm, well-perfused. No cyanosis. No clubbing. No peripheral edema. LOWER EXTREMITIES: 2+ pulses, warm, well-perfused. No calf tenderness. No peripheral edema. Laboratory Results - last 24 hr 03/16/18 03/16/18 03/16/18 14:19 14:25 14:45 WBC 7.1 RBC 2.73 L Hgb 6.8 L* Hct 21.9 L MCV 80.2 MCH 25.1 L MCHC 31.2 L RDW 20.8 H Plt Count 377 MPV 7.6 Neutrophils % 65.5 Lymphocytes % 17.2 D Monocytes % 13.8 H Eosinophils % 2.5 Basophils % 1.0 Nucleated RBC % 1 H Retic Count PT with INR INR PTT (Actin FS) Sodium Potassium Chloride Carbon Dioxide Anion Gap BUN Creatinine Creat Clearance w eGFR Random Glucose Calcium Total Bilirubin AST ALT Alkaline Phosphatase LD Total 184 Total Protein Albumin Urine Color Urine Appearance Urine pH Ur Specific [place] Urine Protein Urine Glucose (UA) Urine Ketones Urine Blood Urine Nitrite Urine Bilirubin Urine Urobilinogen Ur Leukocyte Esterase Stool Occult Blood Negative Blood Type Antibody Screen Crossmatch 03/16/18 03/16/18 03/16/18 14:45 14:45 14:45 WBC RBC Hgb Hct MCV MCH MCHC RDW Plt Count MPV Neutrophils % Lymphocytes % Monocytes % Eosinophils % Basophils % Nucleated RBC % Retic Count PT with INR 10.70 INR 0.95 PTT (Actin FS) 29.1 Sodium 142 Potassium 4.2 Chloride 107 Carbon Dioxide 32 Anion Gap 3 L BUN 18 Creatinine 0.6 Creat Clearance w eGFR > 60 Random Glucose 106 Calcium 8.4 L Total Bilirubin 0.1 L D AST 10 L ALT 15 Alkaline Phosphatase 68 LD Total Total Protein 5.5 L Albumin 2.9 L Urine Color Urine Appearance Urine pH Ur Specific [place] Urine Protein Urine Glucose (UA) Urine Ketones Urine Blood Urine Nitrite Urine Bilirubin Urine Urobilinogen Ur Leukocyte Esterase Stool Occult Blood Blood Type A POSITIVE Antibody Screen Negative Crossmatch 03/16/18 03/16/18 03/16/18 14:45 15:24 17:00 WBC RBC Hgb Hct MCV MCH MCHC RDW Plt Count MPV Neutrophils % Lymphocytes % Monocytes % Eosinophils % Basophils % Nucleated RBC % Retic Count 4.68 H PT with INR INR PTT (Actin FS) Sodium Potassium Chloride Carbon Dioxide Anion Gap BUN Creatinine Creat Clearance w eGFR Random Glucose Calcium Total Bilirubin AST ALT Alkaline Phosphatase LD Total Total Protein Albumin Urine Color Yellow Urine Appearance Clear Urine pH 6.0 Ur Specific [place] 1.042 H Urine Protein Negative Urine Glucose (UA) Negative Urine Ketones Negative Urine Blood Negative Urine Nitrite Negative Urine Bilirubin Negative Urine Urobilinogen Negative Ur Leukocyte Esterase Negative Stool Occult Blood Blood Type A POSITIVE Antibody Screen Crossmatch See Detail ASSESSMENT/PLAN: The patient is a 62 year old female, with a significant past medical history of heroin abuse, COPD, DM, HTN, seizure disorder, pancreatic mass not currently on treatment, cholecystectomy, hysterectomy, vulvar skin cancer, and GERD, who presents to the emergency department from [facility] for evaluation of generalized weakness and fatigue. Patient report that blood work at [facility] shows hmg 6.9 and she was sent to the ED for further evaluation. During exam, patient stated that she has had numerous blood transfusions in the past, apx 30 for anemia. She had a right subclavian mediport placed for her multiple transfusion dependence. She was told she had a mass in her pancreas and was to have a repeat MRI within 6 months but has not yet done so. In the Ed, hmg was 6.9 and 2 units of PRBC were ordered. Heme: Symptomatic anemia 2 units of prbc ordered with lasix in between doses Unclear why patient has had multiple blood transfusions, state she was treated in [place] and told she had a pancreatic mass CT scan here shoes unspecific pancreatic mass versus pseudocyst. Patient to get repeat MRI as outpatient, advised her that it is important that she does so She has has a strong family history of leukemia, will have hematology follow up outpatient Patient in agreement GI: Pancreatic mass vs cyst seen on CT Outpatient follow up, Patient was told to have a repeat MRI and have not yet done so Endocrine Diabetes, on SS F.E.N. Fluids: PO adequate Electrolytes: monitor Nutrition: diabetic diet Disposition: full code Hospitalist Screening - Colonoscopy Questionnaire Colonoscopy Questionnaire: Colonoscopy Questionnaire
[2018-03-16] MEDS ORDERED: FUROSEMIDE 40 MG/4 ML INJECTABLE VIAL IVPUSH ONE (21:30)
[2018-03-16] MEDS ORDERED: FUROSEMIDE 40 MG/4 ML INJECTABLE VIAL ONE (21:35)
[2018-03-16] MEDS ORDERED: traZODone HCL 150 MG TABLET PO SCH (22:00)
[2018-03-16] MEDS: levETIRAcetam 500 MG TABLET (FP) PO SCH (22:45)
[2018-03-16] MEDS: diphenhydrAMINE HCL 25 MG CAPSULE (FP) PO SCH (22:45)
[2018-03-16] MEDS: TIZANIDINE HCL 2 MG TABLET PO PRN (22:47)
[2018-03-16] MEDS: GABAPENTIN 300 MG CAPSULE (FP) PO SCH (22:47)
[2018-03-16] MEDS: INSULIN (LEVEMIR) 100 UNITS/ML UNITS SQ SCH (22:53)
[2018-03-16] MEDS: INSULIN SLIDING SCALE (NOVOLOG) 1 VIAL SQ SCH (22:53)
[2018-03-16] MEDS: ALBUTEROL SO4 2.5/IPRATROPIUM 0.5 INH SOL 3 ML VIAL.NEB. NEB SCH (23:00)
[2018-03-17] MEDS: GABAPENTIN 300 MG CAPSULE (FP) PO SCH ×3 (07:30→21:16)
[2018-03-17] MEDS: metFORMIN HCL 500 MG TABLET (FP) PO SCH ×2 (07:30→18:54)
[2018-03-17] MEDS: INSULIN SLIDING SCALE (NOVOLOG) 1 VIAL SQ SCH ×4 (07:31→21:25)
[2018-03-17 07:33] LABS: HEMATOCRIT 28.9 % (32.4-45.2); HEMOGLOBIN 9.3 GM/dL (10.7-15.3); MCHC 32.1 g/dl (32.0-36.0); MEAN PLT VOLUME 7.5 fl (7.5-11.1); PLATELET COUNT 370 K/MM3 (134-434); RBC 3.57 M/mm3 (3.60-5.2); WHITE BLOOD COUNT 9.9 K/mm3 (4.0-10.0)
[2018-03-17 07:57] LABS: ALBUMIN 3.1 g/dl (3.4-5.0); CHLORIDE 107 mmol/L (98-107); POTASSIUM 3.9 mmol/L (3.5-5.1); SODIUM 145 mmol/L (136-145)
[2018-03-17 07:59] LABS: BLOOD UREA NITROGEN 18 mg/dL (7-18)
[2018-03-17 08:04] LABS: ALK PHOS 66 U/L (45-117); ANION GAP 7 (8-16); BILIRUBIN,TOTAL 0.4 mg/dL (0.2-1.0); CALCIUM 8.5 mg/dL (8.5-10.1); CO2 31 mmol/L (21-32); CREATININE 0.8 mg/dL (0.55-1.02); GLUCOSE,RANDOM 101 mg/dL (74-106); MAGNESIUM 1.9 mg/dL (1.8-2.4); SGOT/AST 9 U/L (15-37); SGPT/ALT 14 U/L (12-78); TOT PROT 5.7 g/dl (6.4-8.2)
[2018-03-17] MEDS ORDERED: ALBUTEROL SO4 2.5/IPRATROPIUM 0.5 INH SOL 3 ML VIAL.NEB. NEB ONE (09:29)
[2018-03-17] MEDS: ALBUTEROL SO4 2.5/IPRATROPIUM 0.5 INH SOL 3 ML VIAL.NEB. NEB SCH ×3 (09:47→20:38)
[2018-03-17] MEDS: LISINOPRIL 5 MG TABLET (FP) PO SCH (11:12)
[2018-03-17] MEDS: levETIRAcetam 500 MG TABLET (FP) PO SCH ×2 (11:12→21:15)
[2018-03-17] MEDS ORDERED: ALPRAZolam 0.25 MG TABLET PO ONE (12:19)
--- NOTE | 2018-03-17 12:28 | CONSULT ---
Consult Detox [facility] Reason for Current Admission/Consult: substance use Referred by:: vannessa snow - Alcohol/Substance Use Hx Alcohol Use: No - Past Medical History ...: No Assessment Plan - Diagnosis (1) Anemia Status: Acute Qualifiers: Anemia type: unspecified type Qualified Code(s): D64.9 - Anemia, unspecified (2) HTN (hypertension) Status: Acute Qualifiers: Hypertension type: essential hypertension Qualified Code(s): I10 - Essential (primary) hypertension (3) Opioid dependence Status: Acute Qualifiers: Substance use status: uncomplicated Qualified Code(s): F11.20 - Opioid dependence, uncomplicated (4) Diabetes 1.5, managed as type 2 Status: Chronic (5) Seizure disorder Status: Chronic (6) Anxiety Status: Suspected (7) Depressed affect Status: Suspected - Plan Plan: 62 yo f sent from rehab at [facility] for blood transfusion because of anemia, transfused 2 units. ap-proved transfer back to rehab.
[2018-03-17] MEDS ORDERED: ALPRAZolam 0.25 MG TABLET ONE (12:58)
--- NOTE | 2018-03-17 13:28 | EKG ---
Test Reason : Blood Pressure : / mmHG Vent. Rate : 086 BPM Atrial Rate : 086 BPM P-R Int : 156 ms QRS Dur : 078 ms QT Int : 378 ms P-R-T Axes : 085 063 066 degrees QTc Int : 452 ms NORMAL SINUS RHYTHM NORMAL ECG WHEN COMPARED WITH ECG OF 11-MAR-2018 19:30, NO SIGNIFICANT CHANGE WAS FOUND Confirmed by TASHA ANDRADE MD ([id number]) on 03/17/2018 1:28:18 PM Referred By: Confirmed By:TASHA ANDRADE MD
--- NOTE | 2018-03-17 14:59 | PN ---
Physical Exam: SUBJECTIVE: Patient seen and examined at the bedside. Spoke to patient on the importance to have an MRI to follow up on CT scan findings. Hematology follow up as an outpatient as she reports multiple transfusions. OBJECTIVE: Patient for d/c back to [facility] today but had abdominal discomfort and c/o of constipation Abd xray pending Vital Signs Period Temp Pulse Resp BP Sys/[place] Pulse Ox Last 24 Hr 97.9 F-98.5 F 73-82 17-18 106-138/51-76 92-96 GENERAL: The patient is awake, alert, and fully oriented, in no acute distress. HEAD: Normal with no signs of trauma. EYES: PERRL, extraocular movements intact, sclera anicteric, conjunctiva clear. No ptosis. ENT: Ears normal, nares patent, oropharynx clear without exudates, moist mucous membranes. NECK: Trachea midline, full range of motion, supple. LUNGS: Breath sounds equal, clear to auscultation bilaterally, no wheezes, no crackles, no accessory muscle use. HEART: Regular rate and rhythm, S1, S2 without murmur, rub or gallop. ABDOMEN: soft, non tender, not distended, + bowel dounds EXTREMITIES: 2+ pulses, warm, well-perfused, no edema. NEUROLOGICAL: Cranial nerves II through XII grossly intact. Normal speech, gait not observed. PSYCH: Normal mood, normal affect. SKIN: Warm, dry, normal turgor, no rashes or lesions noted Laboratory Results - last 24 hr 03/16/18 03/16/18 03/16/18 14:25 14:45 14:45 WBC 7.1 RBC 2.73 L Hgb 6.8 L* Hct 21.9 L MCV 80.2 MCH 25.1 L MCHC 31.2 L RDW 20.8 H Plt Count 377 MPV 7.6 Neutrophils % 65.5 Lymphocytes % 17.2 D Monocytes % 13.8 H Eosinophils % 2.5 Basophils % 1.0 Nucleated RBC % 1 H Retic Count PT with INR INR PTT (Actin FS) Sodium 142 Potassium 4.2 Chloride 107 Carbon Dioxide 32 Anion Gap 3 L BUN 18 Creatinine 0.6 Creat Clearance w eGFR > 60 POC Glucometer Random Glucose 106 Calcium 8.4 L Magnesium Ferritin Total Bilirubin 0.1 L D AST 10 L ALT 15 Alkaline Phosphatase 68 LD Total 184 Total Protein 5.5 L Albumin 2.9 L Urine Color Urine Appearance Urine pH Ur Specific [place] Urine Protein Urine Glucose (UA) Urine Ketones Urine Blood Urine Nitrite Urine Bilirubin Urine Urobilinogen Ur Leukocyte Esterase Blood Type Antibody Screen Crossmatch 03/16/18 03/16/18 03/16/18 14:45 14:45 14:45 WBC RBC Hgb Hct MCV MCH MCHC RDW Plt Count MPV Neutrophils % Lymphocytes % Monocytes % Eosinophils % Basophils % Nucleated RBC % Retic Count 4.68 H PT with INR 10.70 INR 0.95 PTT (Actin FS) 29.1 Sodium Potassium Chloride Carbon Dioxide Anion Gap BUN Creatinine Creat Clearance w eGFR POC Glucometer Random Glucose Calcium Magnesium Ferritin Total Bilirubin AST ALT Alkaline Phosphatase LD Total Total Protein Albumin Urine Color Urine Appearance Urine pH Ur Specific [place] Urine Protein Urine Glucose (UA) Urine Ketones Urine Blood Urine Nitrite Urine Bilirubin Urine Urobilinogen Ur Leukocyte Esterase Blood Type A POSITIVE Antibody Screen Negative Crossmatch 03/16/18 03/16/18 03/16/18 15:00 15:24 17:00 WBC RBC Hgb Hct MCV MCH MCHC RDW Plt Count MPV Neutrophils % Lymphocytes % Monocytes % Eosinophils % Basophils % Nucleated RBC % Retic Count PT with INR INR PTT (Actin FS) Sodium Potassium Chloride Carbon Dioxide Anion Gap BUN Creatinine Creat Clearance w eGFR POC Glucometer Random Glucose Calcium Magnesium Ferritin 11.355 Total Bilirubin AST ALT Alkaline Phosphatase LD Total Total Protein Albumin Urine Color Yellow Urine Appearance Clear Urine pH 6.0 Ur Specific [place] 1.042 H Urine Protein Negative Urine Glucose (UA) Negative Urine Ketones Negative Urine Blood Negative Urine Nitrite Negative Urine Bilirubin Negative Urine Urobilinogen Negative Ur Leukocyte Esterase Negative Blood Type A POSITIVE Antibody Screen Crossmatch See Detail 03/16/18 03/17/18 03/17/18 22:49 06:33 07:10 WBC 9.9 D RBC 3.57 L D Hgb 9.3 L D Hct 28.9 L D MCV 81.0 MCH 26.0 MCHC 32.1 RDW 19.0 H Plt Count 370 MPV 7.5 Neutrophils % Lymphocytes % Monocytes % Eosinophils % Basophils % Nucleated RBC % Retic Count PT with INR INR PTT (Actin FS) Sodium Potassium Chloride Carbon Dioxide Anion Gap BUN Creatinine Creat Clearance w eGFR POC Glucometer 194 62 Random Glucose Calcium Magnesium Ferritin Total Bilirubin AST ALT Alkaline Phosphatase LD Total Total Protein Albumin Urine Color Urine Appearance Urine pH Ur Specific [place] Urine Protein Urine Glucose (UA) Urine Ketones Urine Blood Urine Nitrite Urine Bilirubin Urine Urobilinogen Ur Leukocyte Esterase Blood Type Antibody Screen Crossmatch 03/17/18 03/17/18 07:10 11:23 WBC RBC Hgb Hct MCV MCH MCHC RDW Plt Count MPV Neutrophils % Lymphocytes % Monocytes % Eosinophils % Basophils % Nucleated RBC % Retic Count PT with INR INR PTT (Actin FS) Sodium 145 Potassium 3.9 Chloride 107 Carbon Dioxide 31 Anion Gap 7 L BUN 18 Creatinine 0.8 Creat Clearance w eGFR > 60 POC Glucometer 113 Random Glucose 101 Calcium 8.5 Magnesium 1.9 Ferritin Total Bilirubin 0.4 D AST 9 L ALT 14 Alkaline Phosphatase 66 LD Total Total Protein 5.7 L Albumin 3.1 L Urine Color Urine Appearance Urine pH Ur Specific [place] Urine Protein Urine Glucose (UA) Urine Ketones Urine Blood Urine Nitrite Urine Bilirubin Urine Urobilinogen Ur Leukocyte Esterase Blood Type Antibody Screen Crossmatch Active Medications Generic Name Dose Route Start Last Admin Trade Name Freq PRN Reason Stop Dose Admin Acetaminophen 650 mg 03/16/18 18:28 Tylenol - PO Q6H PRN FEVER Al Hydroxide/Mg Hydroxide 30 ml 03/16/18 18:29 Mylanta Oral Suspension - PO Q6H PRN DYSPEPSIA Albuterol/Ipratropium 1 amp 03/16/18 20:00 03/17/18 13:52 Duoneb - NEB 1 amp RQID JUAN Administration Diphenhydramine HCl 25 mg 03/16/18 22:00 03/16/18 22:45 Benadryl - PO 25 mg HS JUAN Administration Gabapentin 600 mg 03/16/18 22:00 03/17/18 13:35 Neurontin - PO 600 mg TID JUAN Administration Hydroxyzine Pamoate 50 mg 03/16/18 18:31 Vistaril - PO Q4H PRN AGITATION Insulin Aspart 1 vial 03/16/18 22:00 03/17/18 11:24 Novolog Vial Sliding Scale - SQ Not Given ACHS [facility] Protocol Insulin Detemir 25 units 03/16/18 22:00 03/16/18 22:53 Levemir Vial SQ 25 units HS JUAN Administration Levetiracetam 500 mg 03/16/18 22:00 03/17/18 11:12 Keppra - PO 500 mg BID JUAN Administration Lisinopril 5 mg 03/17/18 10:00 03/17/18 11:12 Prinivil PO 5 mg DAILY JUAN Administration Metformin HCl 500 mg 03/17/18 07:00 03/17/18 07:30 Glucophage - PO Not Given BIDI [facility] Multivit/Folic Acid/Iron 1 tab 03/18/18 10:00 Vitamins (Sjr) - PO DAILY JUAN Thiamine HCl 100 mg 03/17/18 22:00 Vitamin B1 - PO HS [facility] Tizanidine HCl 2 mg 03/16/18 18:32 03/16/18 22:47 Tizanidine Hcl PO 2 mg Q8H PRN Administration MUSCLE SPASMS Trazodone HCl 150 mg 03/16/18 22:00 03/16/18 22:45 Desyrel - PO 150 mg HS JUAN Administration ASSESSMENT/PLAN: The patient is a 62 year old female, with a significant past medical history of heroin abuse, COPD, DM, HTN, seizure disorder, pancreatic mass not currently on treatment, cholecystectomy, hysterectomy, vulvar skin cancer, and GERD, who presents to the emergency department from [facility] for evaluation of generalized weakness and fatigue. Patient report that blood work at [facility] shows hmg 6.9 and she was sent to the ED for further evaluation. During exam, patient stated that she has had numerous blood transfusions in the past, apx 30 for anemia. She had a right subclavian mediport placed for her multiple transfusion dependence. She was told she had a mass in her pancreas and was to have a repeat MRI within 6 months but has not yet done so. In the Ed, hmg was 6.9 and 2 units of PRBC were ordered. Heme: Symptomatic anemia 2 units of prbc ordered with lasix in between doses Unclear why patient has had multiple blood transfusions, state she was treated in [place] and told she had a pancreatic mass CT scan here shoes unspecific pancreatic mass versus pseudocyst. Patient to get repeat MRI as outpatient, advised her that it is important that she does so She has has a strong family history of leukemia, will have hematology follow up outpatient Patient in agreement GI: Pancreatic mass vs cyst seen on CT Outpatient follow up, Patient was told to have a repeat MRI and have not yet done so Abdominal xray for lower abdominal discomfort No vomiting, abdomen not distended, tolerating diet States she had to disimpact herself today Start on bowel regimen GI consult outpatient for possible colonoscopy Endocrine Diabetes, on SS F.E.N. Fluids: PO adequate Electrolytes: monitor Nutrition: diabetic diet Disposition: full code
[2018-03-17] MEDS ORDERED: SENNOSIDES 8.6MG TABLET (FP) PO PRN (18:50)
[2018-03-17] MEDS ORDERED: ACETAMINOPHEN 325 MG TABLET (FP) PO ONE (19:30)
[2018-03-17] MEDS ORDERED: ACETAMINOPHEN 325 MG TABLET (FP) ONE (19:40)
[2018-03-17 20:09] LABS: COCAINE, UR NEGATIVE ng/ml (CUTOFF=300); METHADONE, UR NEGATIVE ng/ml (CUTOFF=300); OPIATES, URI NEGATIVE ng/ml (CUTOFF=300); PHENCYCLIDINE,URINE NEGATIVE ng/ml (CUTOFF=25); URINE AMPHETAMINES NEGATIVE ng/ml (CUTOFF=500); URINE BARBITURATES NEGATIVE ng/ml (CUTOFF=200); URINE BENZODIAZEPINES NEGATIVE ng/ml (CUTOFF=200)
[2018-03-17] MEDS: diphenhydrAMINE HCL 25 MG CAPSULE (FP) PO SCH (21:15)
[2018-03-17] MEDS: THIAMINE HCL 100 MG TABLET (FP) PO SCH (21:15)
[2018-03-17] MEDS: DOCUSATE SODIUM 100 MG CAPSULE (FP) PO SCH (21:16)
[2018-03-17] MEDS: traZODone HCL 50 MG TABLET (FP) PO SCH (21:17)
[2018-03-17] MEDS: clonazePAM 0.5 MG TABLET PO PRN (21:20)
[2018-03-17] MEDS: INSULIN (LEVEMIR) 100 UNITS/ML UNITS SQ SCH (21:25)
[2018-03-18] MEDS: GABAPENTIN 300 MG CAPSULE (FP) PO SCH ×3 (06:14→23:11)
[2018-03-18] MEDS: metFORMIN HCL 500 MG TABLET (FP) PO SCH ×2 (06:16→17:32)
[2018-03-18] MEDS: INSULIN SLIDING SCALE (NOVOLOG) 1 VIAL SQ SCH ×4 (06:16→23:11)
[2018-03-18] MEDS: ALBUTEROL SO4 2.5/IPRATROPIUM 0.5 INH SOL 3 ML VIAL.NEB. NEB SCH ×4 (07:35→20:28)
[2018-03-18] MEDS: ACETAMINOPHEN 325 MG TABLET (FP) PO PRN (09:09)
[2018-03-18] MEDS: clonazePAM 0.5 MG TABLET PO PRN ×2 (09:10→20:50)
[2018-03-18] MEDS: FERROUS SO4 325 MG TABLET (FP) PO SCH ×2 (11:11→23:11)
[2018-03-18] MEDS: levETIRAcetam 500 MG TABLET (FP) PO SCH ×2 (11:11→23:10)
[2018-03-18] MEDS: LISINOPRIL 5 MG TABLET (FP) PO SCH ×2 (11:11→11:21)
[2018-03-18] MEDS: PRENATAL VITAMINS W/ FOLIC ACID TABLET (FP) PO SCH (11:11)
[2018-03-18] MEDS: BISACODYL 5 MG TABLET.DR (FP) PO ONE ×2 (11:20→14:35)
[2018-03-18] MEDS ORDERED: BISACODYL 10 MG SUPP.RECT RC ONE (13:00)
--- NOTE | 2018-03-18 13:42 | CON.GI ---
Consult Consult Specialty:: GI Reason for Consultation:: anemia, pancreatic mass - History of Present Illness History of Present Illness: chart reviewed. Events noted. As per initial intake: The patient is a 62 year old female, with a significant past medical history of heroin abuse, COPD, DM, HTN, seizure disorder, pancreatic mass not currently on treatment, cholecystectomy, hysterectomy, vulvar skin cancer, and GERD, who presents to the emergency department from [facility] for evaluation of generalized weakness and fatigue. Patient report that blood work at [facility] shows hmg 6.9 and she was sent to the ED for further evaluation. During exam, patient stated that she has had numerous blood transfusions in the past, apx 30 for anemia. She had a right subclavian mediport placed for her multiple transfusion dependence. She was told she had a mass in her pancreas and was to have a repeat MRI within 6 months but has not yet done so. In the Ed, hmg was 6.9 and 2 units of PRBC were ordered. At the time of this and contacted the patient appears comfortable, not in distress, or pain. Awake, alert, oriented. Corroborated staple history. reports dark colored stools however no diarrhea, explosive bowel movements, tenesmus,, or urgency. Denies hematochezia, hematemesis, jaundice, weight loss, dysphagia, odynophagia, dyspepsia, fluctuating abdominal girth. Recalls having colonoscopy 2 years ago. Does not recall specifics. Never had upper endoscopy. Denies chronic NSAIDs, alcohol. - History Source History Provided By: Patient, Medical Record - Past Medical History ...: No - Alcohol/Substance Use Hx Alcohol Use: No - Smoking History Smoking history: Former smoker Have you smoked in the past 12 months: No Home Medications - Allergies Allergies/Adverse Reactions: Allergies Allergy/AdvReac Type Severity Reaction Status Date / Time tomato Allergy Severe Verified 03/11/18 16:57 Penicillins Allergy Intermediate Cough Verified 03/11/18 16:52 - Home Medications Home Medications: Ambulatory Orders Albuterol Sulfate Inhaler - [Ventolin HFA Inhaler -] 2 inh PO Q4H PRN 03/11/18 Gabapentin [Neurontin] 600 mg PO TID 03/11/18 Insulin Detemir [Levemir Flextouch] 25 unit SQ HS 03/11/18 Ipratropium/Albuterol Sulfate [Combivent Respimat Inhal Dalton] 4 gm IH BID 03/11 Metformin HCl [Glucophage] 500 mg PO BID 03/11/18 Trazodone HCl 100 mg PO HS 03/11/18 levETIRAcetam [Keppra -] 500 mg PO BID 03/11/18 Acetaminophen [Tylenol .Regular Strength -] 650 mg PO Q6H PRN tablet 03/17/18 Albuterol 2.5/Ipratropium 0.5 [Duoneb -] 1 amp NEB RQID amp 03/17/18 Diphenhydramine HCl [Benadryl Capsule -] 25 mg PO HS capsule 03/17/18 Insulin (Levemir) [Levemir Vial] 25 units SQ HS units 03/17/18 Insulin Sliding Scale [Novolog Vial Sliding Scale -] 1 vial SQ ACHS units 03/17 Lisinopril [Prinivil] 5 mg PO DAILY tablet 03/17/18 Mag Hydrox/Al Hydrox/Simeth [Mylanta Oral Suspension -] 30 ml PO Q6H PRN cup Vitamins (Sjr) - 1 tab PO DAILY tablet 03/17/18 Thiamine HCl [Vitamin B1 -] 100 mg PO HS tablet 03/17/18 Tizanidine HCl 2 mg PO Q8H PRN tablet 03/17/18 hydrOXYzine PAMOATE [Vistaril -] 50 mg PO Q4H PRN capsule 03/17/18 traZODone HCL [Desyrel -] 150 mg PO HS tablet 03/17/18 Family Disease History - Family Disease History Family Disease History: Diabetes: Mother (), Heart Disease: Father (PVD , ), Mother Review of Systems Findings/Remarks: As per EGD and HPI Physical Exam-GI Vital Signs: Vital Signs Temperature 98 F 03/18/18 09:00 Pulse Rate 73 03/18/18 09:00 Respiratory Rate 18 03/18/18 09:00 Blood Pressure 98/42 03/18/18 09:00 O2 Sat by Pulse Oximetry (%) 92 L 03/17/18 21:00 Constitutional: Yes: Well Nourished, No Distress, Calm Eyes: Yes: Conjunctiva Clear HENT: Yes: Atraumatic Neck: Yes: Supple Cardiovascular: Yes: Regular Rate and Rhythm Respiratory: Yes: Regular Gastrointestinal Inspection: No: Ascites, Distention ...Auscultate: Yes: Normoactive Bowel Sounds ...Palpate: Yes: Soft. No: Firm/Rigid, Guarding, Mass ...Rectal Exam: Yes: Guaiac Negative Neurological: Yes: Alert, Oriented Labs: CBC, BMP 03/17/18 07:10 03/17/18 07:10 INR, PTT INR 0.95 (0.82-1.09) 03/16/18 14:45 Laboratory Last Values WBC 9.9 K/mm3 (4.0-10.0) D 03/17/18 07:10 RBC 3.57 M/mm3 (3.60-5.2) L D 03/17/18 07:10 Hgb 9.3 GM/dL (10.7-15.3) L D 03/17/18 07:10 Hct 28.9 % (32.4-45.2) L D 03/17/18 07:10 MCV 81.0 fl (80-96) 03/17/18 07:10 MCH 26.0 pg (25.7-33.7) 03/17/18 07:10 MCHC 32.1 g/dl (32.0-36.0) 03/17/18 07:10 RDW 19.0 % (11.6-15.6) H 03/17/18 07:10 Plt Count 370 K/MM3 (134-434) 03/17/18 07:10 MPV 7.5 fl (7.5-11.1) 03/17/18 07:10 Neutrophils % 65.5 % (42.8-82.8) 03/16/18 14:45 Lymphocytes % 17.2 % (8-40) D 03/16/18 14:45 Monocytes % 13.8 % (3.8-10.2) H 03/16/18 14:45 Eosinophils % 2.5 % (0-4.5) 03/16/18 14:45 Basophils % 1.0 % (0-2.0) 03/16/18 14:45 Nucleated RBC % 1 % (0-0) H 03/16/18 14:45 Retic Count 4.68 % (0.5-1.5) H 03/16/18 14:45 Haptoglobin 59 mg/dL (34-200) 03/16/18 14:25 PT with INR 10.70 SEC (9.7-13.0) 03/16/18 14:45 INR 0.95 (0.82-1.09) 03/16/18 14:45 PTT (Actin FS) 29.1 SECONDS (26.9-34.4) 03/16/18 14:45 Sodium 145 mmol/L (136-145) 03/17/18 07:10 Potassium 3.9 mmol/L (3.5-5.1) 03/17/18 07:10 Chloride 107 mmol/L (98-107) 03/17/18 07:10 Carbon Dioxide 31 mmol/L (21-32) 03/17/18 07:10 Anion Gap 7 (8-16) L 03/17/18 07:10 BUN 18 mg/dL (7-18) 03/17/18 07:10 Creatinine 0.8 mg/dL (0.55-1.02) 03/17/18 07:10 Creat Clearance w eGFR > 60 (>60) 03/17/18 07:10 POC Glucometer 116 UNITS (80-120) 03/18/18 12:44 Random Glucose 101 mg/dL (74-106) 03/17/18 07:10 Calcium 8.5 mg/dL (8.5-10.1) 03/17/18 07:10 Magnesium 1.9 mg/dL (1.8-2.4) 03/17/18 07:10 Ferritin 11.355 ng/ml (6.9-282.5) 03/16/18 15:00 Total Bilirubin 0.4 mg/dL (0.2-1.0) D 03/17/18 07:10 AST 9 U/L (15-37) L 03/17/18 07:10 ALT 14 U/L (12-78) 03/17/18 07:10 Alkaline Phosphatase 66 U/L (45-117) 03/17/18 07:10 LD Total 184 U/L (84-246) 03/16/18 14:25 Total Protein 5.7 g/dl (6.4-8.2) L 03/17/18 07:10 Albumin 3.1 g/dl (3.4-5.0) L 03/17/18 07:10 Urine Color Yellow 05/30/18 17:00 Urine Appearance Clear 03/16/18 17:00 Urine pH 6.0 (5.0-8.0) 03/16/18 17:00 Ur Specific [place] 1.042 (1.001-1.035) H 03/16/18 17:00 Urine Protein Negative (NEGATIVE) 03/16/18 17:00 Urine Glucose (UA) Negative (NEGATIVE) 03/16/18 17:00 Urine Ketones Negative (NEGATIVE) 03/16/18 17:00 Urine Blood Negative (NEGATIVE) 03/16/18 17:00 Urine Nitrite Negative (NEGATIVE) 03/16/18 17:00 Urine Bilirubin Negative (<2.0 mg/dL) 03/16/18 17:00 Urine Urobilinogen Negative mg/dL (0.2-1.0) 03/16/18 17:00 Ur Leukocyte Esterase Negative (NEGATIVE) 03/16/18 17:00 Stool Occult Blood Negative (NEGATIVE) 03/16/18 14:19 Opiates Screen Negative ng/ml (COLBEC=531) 03/17/18 19:10 Methadone Screen Negative ng/ml (ULCFMK=568) 03/17/18 19:10 Barbiturate Screen Negative ng/ml (PYUJSP=331) 03/17/18 19:10 Phencyclidine Screen Negative ng/ml (CUTOFF=25) 03/17/18 19:10 Ur Amphetamines Screen Negative ng/ml (HPVPIZ=303) 03/17/18 19:10 MDMA (Ecstasy) Screen Negative ng/ml (UJWZYG=509) 03/17/18 19:10 Benzodiazepines Screen Negative ng/ml (ARKKPB=820) 03/17/18 19:10 Cocaine Screen Negative ng/ml (VJBYME=133) 03/17/18 19:10 U Marijuana (THC) Screen Negative ng/ml (CUTOFF=50) 03/17/18 19:10 Blood Type A POSITIVE 03/16/18 15:24 Antibody Screen Negative 03/16/18 14:45 Crossmatch See Detail 03/16/18 15:24 Imaging - Results Cat Scan: Report Reviewed ( PANCREATIC AND SPLENIC CYSTS.) Problem List - Problems (1) Normocytic hypochromic anemia Code(s): D50.9 - IRON DEFICIENCY ANEMIA, UNSPECIFIED Assessment/Plan A 62-year-old female with the above history including multiple blood transfusions and no stigmata of recent, or ongoing gastrointestinal bleed presents with normocytic, hypochromic anemia and dark, heme negative stools. Also known to have pancreatic "mass". A CT scan on this admission reveals what appears to be pancreatic and splenic cysts. recommend obtaining a hematology consult. Plan upper and lower endoscopy to rule out gastrointestinal causes of anemia. Pancreatic MRI. Diet as tolerated. Discussed with the patient.
[2018-03-18 14:04] LABS: BASO % 0.7 % (0-2.0); EOS % 2.7 % (0-4.5); HEMOGLOBIN 9.2 GM/dL (10.7-15.3); LYMPH % 23.6 % (8-40); MCH 25.9 pg (25.7-33.7); MCHC 31.8 g/dl (32.0-36.0); MEAN CELL VOLUME 81.5 fl (80-96); MEAN PLT VOLUME 8.2 fl (7.5-11.1); MONO % 12.5 % (3.8-10.2); NEUT % 60.5 % (42.8-82.8); PLATELET COUNT 368 K/MM3 (134-434); RBC 3.56 M/mm3 (3.60-5.2); WHITE BLOOD COUNT 5.1 K/mm3 (4.0-10.0)
--- NOTE | 2018-03-18 17:20 | PN ---
Physical Exam: SUBJECTIVE: Patient seen and examined at the bedside. Patient is reporting 10/10 abdominal pain, epigastric. Abdominal xray shows retention. CT scan shows possible pancreatic lesion. At this time, since patient is having diffused abdominal pain, patient needs further workup. OBJECTIVE: Vital Signs Period Temp Pulse Resp BP Sys/[place] Pulse Ox Last 24 Hr 97.7 F-98 F 64-75 18-20 98-105/42-63 92 GENERAL: Awake, alert, and fully oriented, in no acute distress. HEAD: Normal with no signs of trauma. EYES: Pupils equal, round and reactive to light, extraocular movements intact, sclera anicteric, conjunctiva clear. No lid lag. EARS, NOSE, THROAT: Ears normal, nares patent, oropharynx clear without exudates. Moist mucous membranes. NECK: Normal range of motion, supple without lymphadenopathy, JVD, or masses. LUNGS: Breath sounds equal, clear to auscultation bilaterally. No wheezes, and no crackles. No accessory muscle use. HEART: Regular rate and rhythm, normal S1 and S2 without murmur, rub or gallop. ABDOMEN: Soft, nontender, not distended, normoactive bowel sounds, no guarding, no rebound, no masses. No hepatomegaly or splenomegaly. MUSCULOSKELETAL: Normal range of motion at all joints. No bony deformities or tenderness. No CVA tenderness. UPPER EXTREMITIES: 2+ pulses, warm, well-perfused. No cyanosis. No clubbing. No peripheral edema. LOWER EXTREMITIES: 2+ pulses, warm, well-perfused. No calf tenderness. No peripheral edema. Laboratory Results - last 24 hr 03/16/18 03/17/18 03/17/18 14:25 18:53 19:10 WBC RBC Hgb Hct MCV MCH MCHC RDW Plt Count MPV Neutrophils % Lymphocytes % Monocytes % Eosinophils % Basophils % Nucleated RBC % Haptoglobin 59 POC Glucometer 101 Opiates Screen Negative Methadone Screen Negative Barbiturate Screen Negative Phencyclidine Screen Negative Ur Amphetamines Screen Negative MDMA (Ecstasy) Screen Negative Benzodiazepines Screen Negative Cocaine Screen Negative U Marijuana (THC) Screen Negative 03/17/18 03/18/18 03/18/18 21:24 05:29 12:44 WBC RBC Hgb Hct MCV MCH MCHC RDW Plt Count MPV Neutrophils % Lymphocytes % Monocytes % Eosinophils % Basophils % Nucleated RBC % Haptoglobin POC Glucometer 137 96 116 Opiates Screen Methadone Screen Barbiturate Screen Phencyclidine Screen Ur Amphetamines Screen MDMA (Ecstasy) Screen Benzodiazepines Screen Cocaine Screen U Marijuana (THC) Screen 03/18/18 13:16 WBC 5.1 D RBC 3.56 L Hgb 9.2 L Hct 29.0 L MCV 81.5 MCH 25.9 MCHC 31.8 L RDW 20.0 H Plt Count 368 MPV 8.2 Neutrophils % 60.5 Lymphocytes % 23.6 D Monocytes % 12.5 H Eosinophils % 2.7 Basophils % 0.7 Nucleated RBC % 0 Haptoglobin POC Glucometer Opiates Screen Methadone Screen Barbiturate Screen Phencyclidine Screen Ur Amphetamines Screen MDMA (Ecstasy) Screen Benzodiazepines Screen Cocaine Screen U Marijuana (THC) Screen Active Medications Generic Name Dose Route Start Last Admin Trade Name Freq PRN Reason Stop Dose Admin Acetaminophen 650 mg 03/16/18 18:28 03/18/18 09:09 Tylenol - PO 650 mg Q6H PRN Administration FEVER Al Hydroxide/Mg Hydroxide 30 ml 03/16/18 18:29 Mylanta Oral Suspension - PO Q6H PRN DYSPEPSIA Albuterol/Ipratropium 1 amp 03/16/18 20:00 03/18/18 16:54 Duoneb - NEB 1 amp RQID JUAN Administration Bisacodyl 20 mg 03/20/18 13:44 Dulcolax - PO 03/20/18 13:45 ONCE ONE Clonazepam 0.25 mg 03/17/18 18:59 03/18/18 09:10 Klonopin - PO 0.25 mg Q12H PRN Administration ANXIETY Diphenhydramine HCl 25 mg 03/16/18 22:00 03/17/18 21:15 Benadryl - PO 25 mg HS JUAN Administration Docusate Sodium 300 mg 03/17/18 22:00 03/17/18 21:16 Colace - PO 300 mg HS JUAN Administration Ferrous Sulfate 325 mg 03/18/18 10:00 03/18/18 11:11 Feosol - PO 325 mg BID JUAN Administration Gabapentin 600 mg 03/16/18 22:00 03/18/18 14:35 Neurontin - PO 600 mg TID JUAN Administration Hydroxyzine Pamoate 50 mg 03/16/18 18:31 Vistaril - PO Q4H PRN AGITATION Insulin Aspart 1 vial 03/16/18 22:00 03/18/18 12:45 Novolog Vial Sliding Scale - SQ Not Given ACHS [facility] Protocol Insulin Detemir 25 units 03/16/18 22:00 03/17/18 21:25 Levemir Vial SQ 25 units HS JUAN Administration Levetiracetam 500 mg 03/16/18 22:00 03/18/18 11:11 Keppra - PO 500 mg BID JUAN Administration Lisinopril 5 mg 03/17/18 10:00 03/18/18 11:21 Prinivil PO Not Given DAILY JUAN Metformin HCl 500 mg 03/17/18 07:00 03/18/18 06:16 Glucophage - PO Not Given BIDI JUAN Polyethylene Glycol/Electrolytes 4,000 ml 03/20/18 17:00 Golytely Solution - PO 03/20/18 17:01 ONCE ONE Multivit/Folic Acid/Iron 1 tab 03/18/18 10:00 03/18/18 11:11 Vitamins (Sjr) - PO 1 tab DAILY JUAN Administration Senna 2 tab 03/17/18 18:50 03/17/18 21:19 Senna - PO 2 tab HS PRN Administration CONSTIPATION Thiamine HCl 100 mg 03/17/18 22:00 03/17/18 21:15 Vitamin B1 - PO 100 mg HS JUAN Administration Tizanidine HCl 2 mg 03/16/18 18:32 03/16/18 22:47 Tizanidine Hcl PO 2 mg Q8H PRN Administration MUSCLE SPASMS Trazodone HCl 150 mg 03/17/18 20:38 03/17/18 21:17 Desyrel - PO 150 mg HS JUAN Administration ASSESSMENT/PLAN: The patient is a 62 year old female, with a significant past medical history of heroin abuse, COPD, DM, HTN, seizure disorder, pancreatic mass not currently on treatment, cholecystectomy, hysterectomy, vulvar skin cancer, and GERD, who presents to the emergency department from [facility] for evaluation of generalized weakness and fatigue. Patient report that blood work at [facility] shows hmg 6.9 and she was sent to the ED for further evaluation. During exam, patient stated that she has had numerous blood transfusions in the past, apx 30 for anemia. She had a right subclavian mediport placed for her multiple transfusion dependence. She was told she had a mass in her pancreas and was to have a repeat MRI within 6 months but has not yet done so. In the Ed, hmg was 6.9 and 2 units of PRBC were ordered. Heme: Symptomatic anemia 2 units of prbc ordered with lasix in between doses Unclear why patient has had multiple blood transfusions, state she was treated in [place] and told she had a pancreatic mass. Has had multiple blood transfusions CT scan here shoes unspecific pancreatic mass versus pseudocyst Patient continues to c/o of abdominal pain, discussed with Dr. Bar MRI of abdomen ordered GI: Pancreatic mass vs cyst seen on CT, MRI ordered Having difussed abdominal pain, no vomiting or nausea Abdominal xray shows retention of stool Start on bowel regimen GI consult for possible colonoscopy Endocrine Diabetes, on SS Hold Metform F.E.N. Fluids: PO adequate Electrolytes: monitor Nutrition: diabetic diet Prophy: GI: Protonix DVT: none for anemia Disposition: full code
[2018-03-18] MEDS ORDERED: clonazePAM 0.5 MG TABLET PO ONE (18:24)
--- NOTE | 2018-03-18 19:03 | CONSULT ---
Consult - text type - Consultation Consultation Note: The patient is a 62 year old female, with a significant past medical history of heroin abuse, COPD, DM, HTN, seizure disorder, pancreatic mass not currently on treatment, cholecystectomy, hysterectomy, vulvar skin cancer, and GERD, who presents to the emergency department from [facility] for evaluation of generalized weakness and fatigue. Patient report that blood work at [facility] shows hmg 6.9 and she was sent to the ED for further evaluation. Denies hematochezia, hematemesis, jaundice, weight loss, dysphagia, odynophagia , dyspepsia, fluctuating abdominal girth. Recalls having colonoscopy 2 years ago. Does not recall specifics. Never had upper endoscopy. Denies chronic NSAIDs, alcohol. - History Source History Provided By: Patient, Medical Record - Smoking History Smoking history: Former smoker Home Medications - Allergies Allergies/Adverse Reactions: Allergies Allergy/AdvReac Type Severity Reaction Status Date / Time tomato Allergy Severe Verified 03/11/18 16:57 Penicillins Allergy Intermediate Cough Verified 03/11/18 16:52 - Home Medications Home Medications: Ambulatory Orders Albuterol Sulfate Inhaler - [Ventolin HFA Inhaler -] 2 inh PO Q4H PRN 03/11/18 Gabapentin [Neurontin] 600 mg PO TID 03/11/18 Insulin Detemir [Levemir Flextouch] 25 unit SQ HS 03/11/18 Ipratropium/Albuterol Sulfate [Combivent Respimat Inhal Ceres] 4 gm IH BID 03/11 Metformin HCl [Glucophage] 500 mg PO BID 03/11/18 Trazodone HCl 100 mg PO HS 03/11/18 levETIRAcetam [Keppra -] 500 mg PO BID 03/11/18 Acetaminophen [Tylenol .Regular Strength -] 650 mg PO Q6H PRN tablet 03/17/18 Albuterol 2.5/Ipratropium 0.5 [Duoneb -] 1 amp NEB RQID amp 03/17/18 Diphenhydramine HCl [Benadryl Capsule -] 25 mg PO HS capsule 03/17/18 Insulin (Levemir) [Levemir Vial] 25 units SQ HS units 03/17/18 Insulin Sliding Scale [Novolog Vial Sliding Scale -] 1 vial SQ ACHS units 03/17 Lisinopril [Prinivil] 5 mg PO DAILY tablet 03/17/18 Mag Hydrox/Al Hydrox/Simeth [Mylanta Oral Suspension -] 30 ml PO Q6H PRN cup Vitamins (Sjr) - 1 tab PO DAILY tablet 03/17/18 Thiamine HCl [Vitamin B1 -] 100 mg PO HS tablet 03/17/18 Tizanidine HCl 2 mg PO Q8H PRN tablet 03/17/18 hydrOXYzine PAMOATE [Vistaril -] 50 mg PO Q4H PRN capsule 03/17/18 traZODone HCL [Desyrel -] 150 mg PO HS tablet 03/17/18 Family Disease History - Family Disease History Family Disease History: Diabetes: Mother (), Heart Disease: Father (PVD , ), Mother Physical Exam-GI Vital Signs: Vital Signs Temperature 98 F 03/18/18 09:00 Pulse Rate 73 03/18/18 09:00 Respiratory Rate 18 03/18/18 09:00 Blood Pressure 98/42 03/18/18 09:00 O2 Sat by Pulse Oximetry (%) 92 L 03/17/18 21:00 Constitutional: Yes: Well Nourished, Cardiovascular: Yes: Regular Rate and Rhythm Respiratory: Yes: Regular ...Auscultate: Yes: Normoactive Bowel Sounds ...Palpate: Yes: Soft. Neurological: Yes: Alert, Oriented Labs: Abnormal Lab Results 03/18/18 13:16 RBC 3.56 L Hgb 9.2 L Hct 29.0 L MCHC 31.8 L RDW 20.0 H Monocytes % 12.5 H Imaging - Results Cat Scan: Report Reviewed ( PANCREATIC AND SPLENIC CYSTS.) Problem List - Problems (1) Normocytic hypochromic anemia Code(s): D50.9 - IRON DEFICIENCY ANEMIA, UNSPECIFIED Assessment/Plan A 62-year-old female with the above history including multiple blood transfusions comes in [facility] anemia reports gi w/u done in [place] being neg reports having had pancreatic cysts low normal MCV and ferritin suggestive of iron deficiency. nl wbc/platelets await iron sat for gi w/u for mri abdomem
[2018-03-18] MEDS ORDERED: PT OWN MED DRAWER 7, Y5N ONE (20:45)
[2018-03-18] MEDS: TIZANIDINE HCL 2 MG TABLET PO PRN (20:55)
[2018-03-18] MEDS ORDERED: INSULIN (NOVOLOG) ASPART 100 UNITS/ML 10ML VIAL ONE (21:22)
[2018-03-18] MEDS: DOCUSATE SODIUM 100 MG CAPSULE (FP) PO SCH (23:10)
[2018-03-18] MEDS: diphenhydrAMINE HCL 25 MG CAPSULE (FP) PO SCH (23:11)
[2018-03-18] MEDS: THIAMINE HCL 100 MG TABLET (FP) PO SCH (23:11)
[2018-03-18] MEDS: traZODone HCL 50 MG TABLET (FP) PO SCH (23:11)
[2018-03-18] MEDS: INSULIN (LEVEMIR) 100 UNITS/ML UNITS SQ SCH (23:12)
[2018-03-19 00:11] LABS: SERUM IRON SATURATION 33 % (15-55); TOTAL IRON BINDING CAPACITY 323 ug/dL (250-450); UIBC 217 ug/dL (118-369)
[2018-03-19] MEDS: GABAPENTIN 300 MG CAPSULE (FP) PO SCH ×3 (05:49→21:02)
[2018-03-19] MEDS: TIZANIDINE HCL 2 MG TABLET PO PRN ×2 (05:49→16:39)
[2018-03-19] MEDS: INSULIN SLIDING SCALE (NOVOLOG) 1 VIAL SQ SCH ×4 (06:00→21:03)
[2018-03-19] MEDS: ALBUTEROL SO4 2.5/IPRATROPIUM 0.5 INH SOL 3 ML VIAL.NEB. NEB SCH ×4 (07:30→19:59)
[2018-03-19] MEDS: clonazePAM 0.5 MG TABLET PO PRN ×2 (08:52→20:59)
[2018-03-19] MEDS: levETIRAcetam 500 MG TABLET (FP) PO SCH ×2 (09:00→21:02)
[2018-03-19] MEDS: LISINOPRIL 5 MG TABLET (FP) PO SCH (09:00)
[2018-03-19] MEDS: PRENATAL VITAMINS W/ FOLIC ACID TABLET (FP) PO SCH (09:00)
[2018-03-19] MEDS: FERROUS SO4 325 MG TABLET (FP) PO SCH ×2 (09:00→21:02)
[2018-03-19 09:26] LABS: BASO % 0.9 % (0-2.0); HEMATOCRIT 29.4 % (32.4-45.2); HEMOGLOBIN 9.3 GM/dL (10.7-15.3); LYMPH % 31.4 % (8-40); MCH 25.9 pg (25.7-33.7); MCHC 31.5 g/dl (32.0-36.0); MONO % 10.1 % (3.8-10.2); NEUT % 54.6 % (42.8-82.8); PLATELET COUNT 352 K/MM3 (134-434); RBC 3.58 M/mm3 (3.60-5.2); RDW 19.7 % (11.6-15.6); WHITE BLOOD COUNT 4.6 K/mm3 (4.0-10.0)
[2018-03-19] MEDS ORDERED: INSULIN (NOVOLOG) ASPART 100 UNITS/ML 10ML VIAL ONE ×2 (12:13→20:10)
[2018-03-19 14:25] LABS: ANION GAP 9 (8-16); BLOOD UREA NITROGEN 16 mg/dL (7-18); CALCIUM 8.5 mg/dL (8.5-10.1); CHLORIDE 109 mmol/L (98-107); CO2 25 mmol/L (21-32); CREATININE 0.6 mg/dL (0.55-1.02); GLUCOSE,RANDOM 60 mg/dL (74-106); POTASSIUM 3.9 mmol/L (3.5-5.1); SGOT/AST 12 U/L (15-37); SGPT/ALT 15 U/L (12-78); SODIUM 143 mmol/L (136-145)
[2018-03-19 14:32] LABS: ALK PHOS 61 U/L (45-117); BILIRUBIN,TOTAL 0.1 mg/dL (0.2-1.0); TOT PROT 5.6 g/dl (6.4-8.2)
[2018-03-19] MEDS: DOCUSATE SODIUM 100 MG CAPSULE (FP) PO SCH ×3 (15:13→21:02)
[2018-03-19] MEDS: POLYETHYLENE GLYCOL 3350 119 GM BTL PO SCH (15:13)
[2018-03-19] MEDS ORDERED: PT OWN MED DRAWER 7, Y5N ONE (16:37)
--- NOTE | 2018-03-19 18:05 | PN ---
Physical Exam: SUBJECTIVE: Patient seen and examined. Still constipated OBJECTIVE: Vital Signs Period Temp Pulse Resp BP Sys/Fallon Pulse Ox Last 24 Hr 97.8 F-98.4 F 71-84 18-20 88-119/44-64 91 GENERAL: Awake, alert, and fully oriented, in no acute distress. HEAD: Normal with no signs of trauma. EYES: Pupils equal, round and reactive to light, extraocular movements intact, sclera anicteric, conjunctiva clear. No lid lag. EARS, NOSE, THROAT: Ears normal, nares patent, oropharynx clear without exudates. Moist mucous membranes. NECK: Normal range of motion, supple without lymphadenopathy, JVD, or masses. LUNGS: Breath sounds equal, clear to auscultation bilaterally. No wheezes, and no crackles. No accessory muscle use. HEART: Regular rate and rhythm, normal S1 and S2 without murmur, rub or gallop. ABDOMEN: Soft, nontender, not distended, normoactive bowel sounds, no guarding, no rebound, no masses. No hepatomegaly or splenomegaly. MUSCULOSKELETAL: Normal range of motion at all joints. No bony deformities or tenderness. No CVA tenderness. UPPER EXTREMITIES: 2+ pulses, warm, well-perfused. No cyanosis. No clubbing. No peripheral edema. LOWER EXTREMITIES: 2+ pulses, warm, well-perfused. No calf tenderness. No peripheral edema. Laboratory Results - last 24 hr 03/16/18 03/16/18 03/18/18 15:00 15:24 23:08 WBC RBC Hgb Hct MCV MCH MCHC RDW Plt Count MPV Neutrophils % Lymphocytes % Monocytes % Eosinophils % Basophils % Nucleated RBC % Sodium Potassium Chloride Carbon Dioxide Anion Gap BUN Creatinine Creat Clearance w eGFR POC Glucometer 128 Random Glucose Calcium Iron 106 TIBC 323 Iron Saturation 33 Total Bilirubin AST ALT Alkaline Phosphatase Total Protein Albumin Fkjot-3-Bmqdqvykl (%) Npltn-3-Shageqkjs (%) Beta Globulins (%) Gamma Globulins (%) M-Oscar % Vitamin B12 TSH Free T4 Ref Test Comments Blood Type A POSITIVE Crossmatch See Detail 03/19/18 03/19/18 03/19/18 05:47 06:35 06:35 WBC 4.6 RBC 3.58 L Hgb 9.3 L Hct 29.4 L MCV 82.0 MCH 25.9 MCHC 31.5 L RDW 19.7 H Plt Count 352 MPV 8.0 Neutrophils % 54.6 Lymphocytes % 31.4 D Monocytes % 10.1 Eosinophils % 3.0 Basophils % 0.9 Nucleated RBC % 0 Sodium Cancelled Potassium Cancelled Chloride Cancelled Carbon Dioxide Cancelled Anion Gap Cancelled BUN Cancelled Creatinine Cancelled Creat Clearance w eGFR Cancelled POC Glucometer 83 Random Glucose Cancelled Calcium Cancelled Iron TIBC Iron Saturation Total Bilirubin Cancelled AST Cancelled ALT Cancelled Alkaline Phosphatase Cancelled Total Protein Cancelled Albumin Cancelled Bdvhv-6-Lvsksxqgf (%) Xgdvu-8-Whmkpgbsc (%) Beta Globulins (%) Gamma Globulins (%) M-Oscar % Vitamin B12 TSH Free T4 Ref Test Comments Blood Type Crossmatch 03/19/18 03/19/18 03/19/18 06:35 06:35 11:32 WBC RBC Hgb Hct MCV MCH MCHC RDW Plt Count MPV Neutrophils % Lymphocytes % Monocytes % Eosinophils % Basophils % Nucleated RBC % Sodium 143 Potassium 3.9 Chloride 109 H Carbon Dioxide 25 Anion Gap 9 BUN 16 Creatinine 0.6 Creat Clearance w eGFR > 60 POC Glucometer 176 Random Glucose 60 L Calcium 8.5 Iron TIBC Iron Saturation Total Bilirubin 0.1 L D AST 12 L ALT 15 Alkaline Phosphatase 61 Total Protein 5.6 L Albumin 3.0 L Usrol-8-Kqmhfnnyi (%) Cancelled Tkesu-2-Fltoqicqz (%) Cancelled Beta Globulins (%) Cancelled Gamma Globulins (%) Cancelled M-Oscar % Cancelled Vitamin B12 1011 H TSH 0.53 Free T4 0.66 L Ref Test Comments Cancelled Blood Type Crossmatch 03/19/18 16:40 WBC RBC Hgb Hct MCV MCH MCHC RDW Plt Count MPV Neutrophils % Lymphocytes % Monocytes % Eosinophils % Basophils % Nucleated RBC % Sodium Potassium Chloride Carbon Dioxide Anion Gap BUN Creatinine Creat Clearance w eGFR POC Glucometer 131 Random Glucose Calcium Iron TIBC Iron Saturation Total Bilirubin AST ALT Alkaline Phosphatase Total Protein Albumin Dcueh-3-Ruepiccgo (%) Dplzu-6-Ykzmptwib (%) Beta Globulins (%) Gamma Globulins (%) M-Oscar % Vitamin B12 TSH Free T4 Ref Test Comments Blood Type Crossmatch Active Medications Generic Name Dose Route Start Last Admin Trade Name Freq PRN Reason Stop Dose Admin Acetaminophen 650 mg 03/16/18 18:28 03/18/18 09:09 Tylenol - PO 650 mg Q6H PRN Administration FEVER Al Hydroxide/Mg Hydroxide 30 ml 03/16/18 18:29 03/18/18 20:04 Mylanta Oral Suspension - PO 30 ml Q6H PRN Administration DYSPEPSIA Albuterol/Ipratropium 1 amp 03/16/18 20:00 03/19/18 15:39 Duoneb - NEB 1 amp RQID JUAN Administration Bisacodyl 20 mg 03/20/18 13:44 Dulcolax - PO 03/20/18 13:45 ONCE ONE Clonazepam 0.25 mg 03/17/18 18:59 03/19/18 08:52 Klonopin - PO 0.25 mg Q12H PRN Administration ANXIETY Diphenhydramine HCl 25 mg 03/16/18 22:00 03/18/18 23:11 Benadryl - PO 25 mg HS JUAN Administration Docusate Sodium 300 mg 03/17/18 22:00 03/18/18 23:10 Colace - PO 300 mg HS JUAN Administration Docusate Sodium 100 mg 03/19/18 15:00 03/19/18 15:13 Colace - PO 100 mg TID JUAN Administration Ferrous Sulfate 325 mg 03/18/18 10:00 03/19/18 09:00 Feosol - PO 325 mg BID JUAN Administration Gabapentin 600 mg 03/16/18 22:00 03/19/18 14:40 Neurontin - PO 600 mg TID JUAN Administration Hydroxyzine Pamoate 50 mg 03/16/18 18:31 Vistaril - PO Q4H PRN AGITATION IV Flush 10 ml 03/19/18 06:21 Suzan-Cath Flush IVPUSH PRN PRN patency maintenance Insulin Aspart 1 vial 03/16/18 22:00 03/19/18 16:42 Novolog Vial Sliding Scale - SQ Not Given ACHS [facility] Protocol Insulin Detemir 25 units 03/16/18 22:00 03/18/18 23:12 Levemir Vial SQ 25 units HS JUAN Administration Levetiracetam 500 mg 03/16/18 22:00 03/19/18 09:00 Keppra - PO 500 mg BID JUAN Administration Lisinopril 5 mg 03/17/18 10:00 03/19/18 09:00 Prinivil PO Not Given DAILY JUAN Polyethylene Glycol 17 gm 03/19/18 15:00 03/19/18 15:13 Miralax (For Daily Use) - PO 17 grams DAILY JUAN Administration Polyethylene Glycol/Electrolytes 4,000 ml 03/20/18 17:00 Golytely Solution - PO 03/20/18 17:01 ONCE ONE Multivit/Folic Acid/Iron 1 tab 03/18/18 10:00 03/19/18 09:00 Vitamins (Sjr) - PO 1 tab DAILY JUNA Administration Senna 2 tab 03/17/18 18:50 03/17/18 21:19 Senna - PO 2 tab HS PRN Administration CONSTIPATION Thiamine HCl 100 mg 03/17/18 22:00 03/18/18 23:11 Vitamin B1 - PO 100 mg HS JUAN Administration Tizanidine HCl 2 mg 03/16/18 18:32 03/19/18 16:39 Tizanidine Hcl PO 2 mg Q8H PRN Administration MUSCLE SPASMS Trazodone HCl 150 mg 03/17/18 20:38 03/18/18 23:11 Desyrel - PO 150 mg HS JUAN Administration ASSESSMENT/PLAN: The patient is a 62 year old female, with a significant past medical history of heroin abuse, COPD, DM, HTN, seizure disorder, pancreatic mass not currently on treatment, cholecystectomy, hysterectomy, vulvar skin cancer, and GERD, who presents to the emergency department from [facility] for evaluation of generalized weakness and fatigue. Patient report that blood work at [facility] shows hmg 6.9 and she was sent to the ED for further evaluation. During exam, patient stated that she has had numerous blood transfusions in the past, apx 30 for anemia. She had a right subclavian mediport placed for her multiple transfusion dependence. She was told she had a mass in her pancreas and was to have a repeat MRI within 6 months but has not yet done so. In the Ed, hmg was 6.9 and 2 units of PRBC were ordered. Heme: Symptomatic anemia, resolved 2 units of prbc ordered with lasix in between doses Unclear why patient has had multiple blood transfusions, state she was treated in [place] and told she had a pancreatic mass. Has had multiple blood transfusions CT scan here shoes unspecific pancreatic mass versus pseudocyst Patient continues to c/o of abdominal pain, discussed with Dr. Bar MRI of abdomen reviewed GI: Abdominal pain Having abdominal pain, no vomiting or nausea Abdominal xray shows retention of stool Start on bowel regimen Colonoscopy on Wednesday Endocrine Diabetes, on SS Hold Metform F.E.N. Fluids: PO adequate Electrolytes: monitor Nutrition: diabetic diet Prophy: GI: Protonix DVT: none for anemia Disposition: full code Visit type - Emergency Visit Emergency Visit: Yes ED Registration Date: 03/16/18 Care time: The patient presented to the Emergency Department on the above date and was hospitalized for further evaluation of their emergent condition. - New Patient This patient is new to me today: No - Critical Care Critical Care patient: No - Discharge Referral Referred to [facility] Med P.C.: No
[2018-03-19] MEDS: traZODone HCL 50 MG TABLET (FP) PO SCH (21:01)
[2018-03-19] MEDS: THIAMINE HCL 100 MG TABLET (FP) PO SCH (21:01)
[2018-03-19] MEDS: diphenhydrAMINE HCL 25 MG CAPSULE (FP) PO SCH (21:01)
[2018-03-19] MEDS: INSULIN (LEVEMIR) 100 UNITS/ML UNITS SQ SCH (21:03)
[2018-03-20] MEDS: TIZANIDINE HCL 2 MG TABLET PO PRN (03:17)
[2018-03-20] MEDS: INSULIN SLIDING SCALE (NOVOLOG) 1 VIAL SQ SCH ×4 (06:09→22:20)
[2018-03-20] MEDS: GABAPENTIN 300 MG CAPSULE (FP) PO SCH ×3 (06:10→22:26)
[2018-03-20] MEDS: DOCUSATE SODIUM 100 MG CAPSULE (FP) PO SCH ×4 (06:10→22:24)
[2018-03-20] MEDS: PORTA CATH FLUSH 10 ML IVPUSH PRN (06:18)
[2018-03-20 07:33] LABS: BASO % 0.8 % (0-2.0); EOS % 2.5 % (0-4.5); HEMATOCRIT 30.1 % (32.4-45.2); HEMOGLOBIN 9.6 GM/dL (10.7-15.3); LYMPH % 40.5 % (8-40); MCH 26.4 pg (25.7-33.7); MCHC 31.8 g/dl (32.0-36.0); MEAN PLT VOLUME 8.3 fl (7.5-11.1); MONO % 9.3 % (3.8-10.2); NEUT % 46.9 % (42.8-82.8); PLATELET COUNT 350 K/MM3 (134-434); RBC 3.62 M/mm3 (3.60-5.2); RDW 19.8 % (11.6-15.6); WHITE BLOOD COUNT 7.2 K/mm3 (4.0-10.0)
[2018-03-20] MEDS: ALBUTEROL SO4 2.5/IPRATROPIUM 0.5 INH SOL 3 ML VIAL.NEB. NEB SCH ×5 (07:40→20:44)
[2018-03-20 07:55] LABS: CHLORIDE 109 mmol/L (98-107); SODIUM 144 mmol/L (136-145)
[2018-03-20 08:12] LABS: ALBUMIN 3.2 g/dl (3.4-5.0); ALK PHOS 60 U/L (45-117); ANION GAP 6 (8-16); BILIRUBIN,TOTAL 0.2 mg/dL (0.2-1.0); BLOOD UREA NITROGEN 15 mg/dL (7-18); CALCIUM 8.6 mg/dL (8.5-10.1); CO2 29 mmol/L (21-32); CREATININE 0.7 mg/dL (0.55-1.02); GLUCOSE,RANDOM 71 mg/dL (74-106); MAGNESIUM 2.1 mg/dL (1.8-2.4); SGOT/AST 14 U/L (15-37); SGPT/ALT 15 U/L (12-78); TOT PROT 5.9 g/dl (6.4-8.2)
[2018-03-20] MEDS ORDERED: SODIUM CHLORIDE 500 ML IV STA (08:12)
[2018-03-20] MEDS ORDERED: SODIUM CHLORIDE 1,000 ML IV SCH (09:12)
[2018-03-20] MEDS: clonazePAM 0.5 MG TABLET PO PRN ×2 (09:52→22:21)
[2018-03-20] MEDS: PRENATAL VITAMINS W/ FOLIC ACID TABLET (FP) PO SCH (09:55)
[2018-03-20] MEDS: levETIRAcetam 500 MG TABLET (FP) PO SCH ×2 (09:55→22:24)
[2018-03-20] MEDS: LISINOPRIL 5 MG TABLET (FP) PO SCH (09:55)
[2018-03-20] MEDS: FERROUS SO4 325 MG TABLET (FP) PO SCH ×2 (09:55→22:25)
[2018-03-20] MEDS: POLYETHYLENE GLYCOL 3350 119 GM BTL PO SCH (09:58)
[2018-03-20] MEDS ORDERED: BISACODYL 5 MG TABLET.DR (FP) PO ONE (13:44)
--- NOTE | 2018-03-20 14:02 | PN ---
Physical Exam: SUBJECTIVE: Patient seen and examined at the bedside. Feels well today but still constipated. OBJECTIVE: for colonoscopy tomorrow, prep today Still constipated despite multiple medications Not nauseous, not vomiting Vital Signs Period Temp Pulse Resp BP Sys/Fallon Pulse Ox Last 24 Hr 98 F-98.3 F 61-84 18-20 84-119/45-61 91-91 GENERAL: Awake, alert, and fully oriented, in no acute distress. HEAD: Normal with no signs of trauma. EYES: Pupils equal, round and reactive to light, extraocular movements intact, sclera anicteric, conjunctiva clear. No lid lag. EARS, NOSE, THROAT: Ears normal, nares patent, oropharynx clear without exudates. Moist mucous membranes. NECK: Normal range of motion, supple without lymphadenopathy, JVD, or masses. LUNGS: Breath sounds equal, clear to auscultation bilaterally. No wheezes, and no crackles. No accessory muscle use. HEART: Regular rate and rhythm, normal S1 and S2 without murmur, rub or gallop. ABDOMEN: Soft, nontender, not distended, normoactive bowel sounds, no guarding, no rebound, no masses. No hepatomegaly or splenomegaly. MUSCULOSKELETAL: Normal range of motion at all joints. No bony deformities or tenderness. No CVA tenderness. UPPER EXTREMITIES: 2+ pulses, warm, well-perfused. No cyanosis. No clubbing. No peripheral edema. LOWER EXTREMITIES: 2+ pulses, warm, well-perfused. No calf tenderness. No peripheral edema. Laboratory Results - last 24 hr 03/16/18 03/19/18 03/19/18 15:24 06:35 06:35 WBC RBC Hgb Hct MCV MCH MCHC RDW Plt Count MPV Neutrophils % Lymphocytes % Monocytes % Eosinophils % Basophils % Nucleated RBC % Sodium Cancelled 143 Potassium Cancelled 3.9 Chloride Cancelled 109 H Carbon Dioxide Cancelled 25 Anion Gap Cancelled 9 BUN Cancelled 16 Creatinine Cancelled 0.6 Creat Clearance w eGFR Cancelled > 60 POC Glucometer Random Glucose Cancelled 60 L Calcium Cancelled 8.5 Magnesium Total Bilirubin Cancelled 0.1 L D AST Cancelled 12 L ALT Cancelled 15 Alkaline Phosphatase Cancelled 61 Total Protein Cancelled 5.6 L Albumin Cancelled 3.0 L Ayqka-6-Daigogcrx (%) Ypnbr-2-Fbbephihr (%) Beta Globulins (%) Gamma Globulins (%) M-Oscar % Vitamin B12 1011 H TSH 0.53 Free T4 0.66 L Ref Test Comments Blood Type A POSITIVE Crossmatch See Detail 03/19/18 03/19/18 03/19/18 06:35 16:40 20:52 WBC RBC Hgb Hct MCV MCH MCHC RDW Plt Count MPV Neutrophils % Lymphocytes % Monocytes % Eosinophils % Basophils % Nucleated RBC % Sodium Potassium Chloride Carbon Dioxide Anion Gap BUN Creatinine Creat Clearance w eGFR POC Glucometer 131 132 Random Glucose Calcium Magnesium Total Bilirubin AST ALT Alkaline Phosphatase Total Protein Albumin Caaod-1-Nutfjcbuh (%) Cancelled Tafuv-3-Qmmefaelt (%) Cancelled Beta Globulins (%) Cancelled Gamma Globulins (%) Cancelled M-Oscar % Cancelled Vitamin B12 TSH Free T4 Ref Test Comments Cancelled Blood Type Crossmatch 03/20/18 03/20/18 03/20/18 06:00 06:00 06:05 WBC 7.2 D RBC 3.62 Hgb 9.6 L Hct 30.1 L MCV 83.0 MCH 26.4 MCHC 31.8 L RDW 19.8 H Plt Count 350 MPV 8.3 Neutrophils % 46.9 Lymphocytes % 40.5 H D Monocytes % 9.3 Eosinophils % 2.5 Basophils % 0.8 Nucleated RBC % 0 Sodium 144 Potassium 4.0 Chloride 109 H Carbon Dioxide 29 Anion Gap 6 L BUN 15 Creatinine 0.7 Creat Clearance w eGFR > 60 POC Glucometer 67 Random Glucose 71 L Calcium 8.6 Magnesium 2.1 Total Bilirubin 0.2 D AST 14 L ALT 15 Alkaline Phosphatase 60 Total Protein 5.9 L Albumin 3.2 L Osfky-9-Tdlbdxymt (%) Nmrrs-0-Ghledmafs (%) Beta Globulins (%) Gamma Globulins (%) M-Oscar % Vitamin B12 TSH Free T4 Ref Test Comments Blood Type Crossmatch 03/20/18 11:23 WBC RBC Hgb Hct MCV MCH MCHC RDW Plt Count MPV Neutrophils % Lymphocytes % Monocytes % Eosinophils % Basophils % Nucleated RBC % Sodium Potassium Chloride Carbon Dioxide Anion Gap BUN Creatinine Creat Clearance w eGFR POC Glucometer 110 Random Glucose Calcium Magnesium Total Bilirubin AST ALT Alkaline Phosphatase Total Protein Albumin Goher-9-Bancifzdr (%) Xnzxu-0-Oygbrydik (%) Beta Globulins (%) Gamma Globulins (%) M-Oscar % Vitamin B12 TSH Free T4 Ref Test Comments Blood Type Crossmatch Active Medications Generic Name Dose Route Start Last Admin Trade Name Andria PRN Reason Stop Dose Admin Acetaminophen 650 mg 03/16/18 18:28 03/18/18 09:09 Tylenol - PO 650 mg Q6H PRN Administration FEVER Al Hydroxide/Mg Hydroxide 30 ml 03/16/18 18:29 03/18/18 20:04 Mylanta Oral Suspension - PO 30 ml Q6H PRN Administration DYSPEPSIA Albuterol/Ipratropium 1 amp 03/16/18 20:00 03/20/18 11:22 Duoneb - NEB 1 amp RQID JUAN Administration Clonazepam 0.25 mg 03/17/18 18:59 03/20/18 09:52 Klonopin - PO 0.25 mg Q12H PRN Administration ANXIETY Diphenhydramine HCl 25 mg 03/16/18 22:00 03/19/18 21:01 Benadryl - PO 25 mg HS JUAN Administration Docusate Sodium 300 mg 03/17/18 22:00 03/19/18 21:02 Colace - PO 300 mg HS JUAN Administration Docusate Sodium 100 mg 03/19/18 15:00 03/20/18 06:10 Colace - PO 100 mg TID JUAN Administration Ferrous Sulfate 325 mg 03/18/18 10:00 03/20/18 09:55 Feosol - PO 325 mg BID JUAN Administration Gabapentin 600 mg 03/16/18 22:00 03/20/18 06:10 Neurontin - PO 600 mg TID JUAN Administration Hydroxyzine Pamoate 50 mg 03/16/18 18:31 Vistaril - PO Q4H PRN AGITATION IV Flush 10 ml 03/19/18 06:21 03/20/18 06:18 Suzan-Cath Flush IVPUSH 10 ml PRN PRN Administration patency maintenance Sodium Chloride 1,000 mls @ 100 mls/hr 03/20/18 09:12 03/20/18 11:24 Normal Saline - IV 100 mls/hr ASDIR JUAN Administration Insulin Aspart 1 vial 03/16/18 22:00 03/20/18 11:26 Novolog Vial Sliding Scale - SQ Not Given ACHS [facility] Protocol Insulin Detemir 25 units 03/16/18 22:00 03/19/18 21:03 Levemir Vial SQ 25 units HS JUAN Administration Levetiracetam 500 mg 03/16/18 22:00 03/20/18 09:55 Keppra - PO 500 mg BID JUAN Administration Lisinopril 5 mg 03/17/18 10:00 03/20/18 09:55 Prinivil PO 5 mg DAILY JUAN Administration Polyethylene Glycol 17 gm 03/19/18 15:00 03/20/18 09:58 Miralax (For Daily Use) - PO 17 grams DAILY JUAN Administration Polyethylene Glycol/Electrolytes 4,000 ml 03/20/18 17:00 Golytely Solution - PO 03/20/18 17:01 ONCE ONE Multivit/Folic Acid/Iron 1 tab 03/18/18 10:00 03/20/18 09:55 Vitamins (Sjr) - PO 1 tab DAILY JUAN Administration Senna 2 tab 03/17/18 18:50 03/17/18 21:19 Senna - PO 2 tab HS PRN Administration CONSTIPATION Thiamine HCl 100 mg 03/17/18 22:00 03/19/18 21:01 Vitamin B1 - PO 100 mg HS JUAN Administration Trazodone HCl 150 mg 03/17/18 20:38 03/19/18 21:01 Desyrel - PO 150 mg HS JUAN Administration ASSESSMENT/PLAN: The patient is a 62 year old female, with a significant past medical history of heroin abuse, COPD, DM, HTN, seizure disorder, pancreatic mass not currently on treatment, cholecystectomy, hysterectomy, vulvar skin cancer, and GERD, who presents to the emergency department from [facility] (rehab) for evaluation of generalized weakness and fatigue. Patient report that blood work at [facility] shows hmg 6.9 and she was sent to the ED for further evaluation. Patient reports numerous blood transfusion in the [place], a mediport (right subclavian) placed for her multiple transfusion dependence. She was told she had a mass in her pancreas and was to have a repeat MRI within 6 months but has not yet done so. In the Ed, hmg was 6.9 and 2 units of PRBC were ordered. Heme: Symptomatic anemia. s/p 2 units of PRBC. hmg/hct stable. Patient intially observation for symptomtic anemia but then developed severe abdominal pain. She did not follow up for repeat imaging of a pancreatic mass. 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 cystic neoplasm. Colonoscopy on 03/21 for hx of numerous blood transfusion. GI on board. Heme on board. Abd xray shows fecal retention. Multiple bowel regimen initiated w/o result. Patient for prep with Golytely today. GI: Abdominal pain, improving but continues to be constipated despite numerous bouts of bowel regimens initiated. Patient for Golytely today. Heme Anemia. s/p 2 units of prbc. Pateint reports multiple blood transfusions requiring a right subclavian mediport. Iron studies pending. Heme on board. Would not initiate Venofer or Ferritin until constipation resolves. Neuro: Seizure disorder. On Keppra. Endocrine Diabetes, on SS, controlled F.E.N. Fluids: PO adequate Electrolytes: monitor Nutrition: diabetic diet Prophy: GI: Protonix DVT: none for anemia Disposition: full code Visit type - Emergency Visit Emergency Visit: Yes ED Registration Date: 03/20/18 Care time: The patient presented to the Emergency Department on the above date and was hospitalized for further evaluation of their emergent condition. - New Patient This patient is new to me today: No - Critical Care Critical Care patient: No - Discharge Referral Referred to [facility] Med P.C.: No
[2018-03-20] MEDS ORDERED: ALBUTEROL SO4 2.5/IPRATROPIUM 0.5 INH SOL 3 ML VIAL.NEB. NEB ONE (14:29)
[2018-03-20] MEDS ORDERED: PEG 3350/NA SULF BICARB CL/KCL 4000 ML SOLN.RECON PO ONE (17:00)
[2018-03-20] MEDS ORDERED: PT OWN MED DRAWER 7, Y5N ONE (17:56)
[2018-03-20] MEDS ORDERED: TIZANIDINE HCL 2 MG TABLET PO ONE (18:00)
[2018-03-20] MEDS ORDERED: TIZANIDINE HCL 4 MG TABLET PO ONE (18:00)
[2018-03-20] MEDS ORDERED: ONDANSETRON 4 MG/2 ML VIAL IVPUSH ONE (20:15)
[2018-03-20] MEDS: INSULIN (LEVEMIR) 100 UNITS/ML UNITS SQ SCH (22:19)
[2018-03-20] MEDS: THIAMINE HCL 100 MG TABLET (FP) PO SCH (22:20)
[2018-03-20] MEDS: diphenhydrAMINE HCL 25 MG CAPSULE (FP) PO SCH (22:22)
[2018-03-20] MEDS: traZODone HCL 50 MG TABLET (FP) PO SCH (22:25)
[2018-03-20] MEDS: DEXTROSE 5%-NORMAL SALINE 1,000 ML IV SCH (22:30)
[2018-03-21] MEDS: PORTA CATH FLUSH 10 ML IVPUSH PRN (06:00)
[2018-03-21] MEDS: DOCUSATE SODIUM 100 MG CAPSULE (FP) PO SCH ×3 (06:31→21:52)
[2018-03-21] MEDS: INSULIN SLIDING SCALE (NOVOLOG) 1 VIAL SQ SCH ×4 (06:31→21:49)
[2018-03-21] MEDS: GABAPENTIN 300 MG CAPSULE (FP) PO SCH ×3 (06:31→21:52)
[2018-03-21] MEDS: DEXTROSE 5%-NORMAL SALINE 1,000 ML IV SCH (06:36)
[2018-03-21] MEDS ORDERED: ONDANSETRON 4 MG/2 ML VIAL IVPUSH ONE (06:46)
[2018-03-21 07:38] LABS: BASO % 1.3 % (0-2.0); EOS % 3.9 % (0-4.5); HEMATOCRIT 28.3 % (32.4-45.2); HEMOGLOBIN 9.1 GM/dL (10.7-15.3); LYMPH % 32.1 % (8-40); MCH 26.6 pg (25.7-33.7); MCHC 32.1 g/dl (32.0-36.0); MEAN CELL VOLUME 82.8 fl (80-96); MEAN PLT VOLUME 8.2 fl (7.5-11.1); MONO % 9.6 % (3.8-10.2); NEUT % 53.1 % (42.8-82.8); PLATELET COUNT 314 K/MM3 (134-434); RBC 3.41 M/mm3 (3.60-5.2); RDW 20.2 % (11.6-15.6); WHITE BLOOD COUNT 4.9 K/mm3 (4.0-10.0)
[2018-03-21 07:53] LABS: CHLORIDE 113 mmol/L (98-107); SODIUM 147 mmol/L (136-145)
[2018-03-21 08:02] LABS: ALBUMIN 2.8 g/dl (3.4-5.0); ALK PHOS 58 U/L (45-117); ANION GAP 5 (8-16); BILIRUBIN,TOTAL 0.2 mg/dL (0.2-1.0); BLOOD UREA NITROGEN 5 mg/dL (7-18); CALCIUM 7.8 mg/dL (8.5-10.1); CO2 29 mmol/L (21-32); CREATININE 0.5 mg/dL (0.55-1.02); GLUCOSE,RANDOM 78 mg/dL (74-106); MAGNESIUM 1.7 mg/dL (1.8-2.4); SGOT/AST 14 U/L (15-37); SGPT/ALT 17 U/L (12-78); TOT PROT 5.1 g/dl (6.4-8.2)
[2018-03-21] MEDS: ALBUTEROL SO4 2.5/IPRATROPIUM 0.5 INH SOL 3 ML VIAL.NEB. NEB SCH ×4 (08:54→21:19)
[2018-03-21] MEDS ORDERED: MAGNESIUM SULF 50% (8.12 MEQ/2 ML-1 GM VIAL) IVPB ONE (09:05)
[2018-03-21] MEDS: FERROUS SO4 325 MG TABLET (FP) PO SCH ×2 (09:14→21:52)
[2018-03-21] MEDS: LISINOPRIL 5 MG TABLET (FP) PO SCH (09:14)
[2018-03-21] MEDS: PRENATAL VITAMINS W/ FOLIC ACID TABLET (FP) PO SCH (09:14)
[2018-03-21] MEDS: POLYETHYLENE GLYCOL 3350 119 GM BTL PO SCH (09:14)
[2018-03-21] MEDS: levETIRAcetam 500 MG TABLET (FP) PO SCH ×2 (09:14→21:52)
[2018-03-21] MEDS: clonazePAM 0.5 MG TABLET PO PRN ×2 (09:16→21:53)
[2018-03-21] MEDS: ACETAMINOPHEN 325 MG TABLET (FP) PO PRN (09:23)
--- NOTE | 2018-03-21 09:25 | PN ---
Physical Exam: SUBJECTIVE: Patient seen and examined. Pt no acute complaints, reports stool in now clear, however was dark. OBJECTIVE: Vital Signs Period Temp Pulse Resp BP Sys/Fallon Pulse Ox Last 24 Hr 97.5 F-98.3 F 65-78 18-20 100-140/50-76 92 PE Neuro: alert, awake, cn 2-12intact HEENT: no teeth Pulm: mild audible wheeze, otherwise clear, no distress CV: s1 s2 rrr no mrg Abd: s nt nd + bs Ext: warm, no le edema Skin: RCW port cdi Laboratory Results - last 24 hr 03/20/18 03/21/18 03/21/18 22:13 04:40 06:00 WBC 4.9 D RBC 3.41 L Hgb 9.1 L Hct 28.3 L MCV 82.8 MCH 26.6 MCHC 32.1 RDW 20.2 H Plt Count 314 MPV 8.2 Neutrophils % 53.1 Lymphocytes % 32.1 D Monocytes % 9.6 Eosinophils % 3.9 Basophils % 1.3 Nucleated RBC % 0 Sodium Potassium Chloride Carbon Dioxide Anion Gap BUN Creatinine Creat Clearance w eGFR POC Glucometer 75 100 Random Glucose Calcium Magnesium Total Bilirubin AST ALT Alkaline Phosphatase Total Protein Albumin Stool Occult Blood 03/21/18 03/21/18 06:00 06:16 WBC RBC Hgb Hct MCV MCH MCHC RDW Plt Count MPV Neutrophils % Lymphocytes % Monocytes % Eosinophils % Basophils % Nucleated RBC % Sodium 147 H Potassium 4.0 Chloride 113 H Carbon Dioxide 29 Anion Gap 5 L BUN 5 L Creatinine 0.5 L Creat Clearance w eGFR > 60 POC Glucometer 98 Random Glucose 78 Calcium 7.8 L Magnesium 1.7 L Total Bilirubin 0.2 AST 14 L ALT 17 Alkaline Phosphatase 58 Total Protein 5.1 L Albumin 2.8 L Stool Occult Blood Active Medications Generic Name Dose Route Start Last Admin Trade Name Freq PRN Reason Stop Dose Admin Acetaminophen 650 mg 03/16/18 18:28 03/18/18 09:09 Tylenol - PO 650 mg Q6H PRN Administration FEVER Al Hydroxide/Mg Hydroxide 30 ml 03/16/18 18:29 03/18/18 20:04 Mylanta Oral Suspension - PO 30 ml Q6H PRN Administration DYSPEPSIA Albuterol/Ipratropium 1 amp 03/16/18 20:00 03/21/18 08:54 Duoneb - NEB 1 amp RQID JUAN Administration Clonazepam 0.25 mg 03/17/18 18:59 03/21/18 09:16 Klonopin - PO 0.25 mg Q12H PRN Administration ANXIETY Diphenhydramine HCl 25 mg 03/16/18 22:00 03/20/18 22:22 Benadryl - PO 25 mg HS JUAN Administration Docusate Sodium 300 mg 03/17/18 22:00 03/20/18 22:24 Colace - PO Not Given HS [facility] Docusate Sodium 100 mg 03/19/18 15:00 03/21/18 06:31 Colace - PO Not Given TID [facility] Ferrous Sulfate 325 mg 03/18/18 10:00 03/21/18 09:14 Feosol - PO Not Given BID [facility] Gabapentin 600 mg 03/16/18 22:00 03/21/18 06:31 Neurontin - PO Not Given TID [facility] Hydroxyzine Pamoate 50 mg 03/16/18 18:31 Vistaril - PO Q4H PRN AGITATION IV Flush 10 ml 03/19/18 06:21 03/21/18 06:00 Suzan-Cath Flush IVPUSH 10 ml PRN PRN Administration patency maintenance Dextrose/Sodium Chloride 1,000 mls @ 100 mls/hr 03/20/18 22:30 03/21/18 06:36 D5-Ns - IV 100 mls/hr ASDIR JUAN Administration Magnesium Sulfate/Dextrose 1 gm in 100 mls @ 100 mls/hr 03/21/18 10:00 Magnesium 1gm/D5w - IVPB 03/21/18 10:59 ONCE ONE Insulin Aspart 1 vial 03/16/18 22:00 03/21/18 06:31 Novolog Vial Sliding Scale - SQ Not Given ACHS [facility] Protocol Insulin Detemir 25 units 03/16/18 22:00 03/20/18 22:19 Levemir Vial SQ Not Given HS [facility] Levetiracetam 500 mg 03/16/18 22:00 03/21/18 09:14 Keppra - PO 500 mg BID JUAN Administration Lisinopril 5 mg 03/17/18 10:00 03/21/18 09:14 Prinivil PO 5 mg DAILY JUAN Administration Polyethylene Glycol 17 gm 03/19/18 15:00 03/21/18 09:14 Miralax (For Daily Use) - PO Not Given DAILY JUAN Multivit/Folic Acid/Iron 1 tab 03/18/18 10:00 03/21/18 09:14 Vitamins (Sjr) - PO 1 tab DAILY JUAN Administration Senna 2 tab 03/17/18 18:50 03/17/18 21:19 Senna - PO 2 tab HS PRN Administration CONSTIPATION Thiamine HCl 100 mg 03/17/18 22:00 03/20/18 22:20 Vitamin B1 - PO Not Given HS JUAN Trazodone HCl 150 mg 03/17/18 20:38 03/20/18 22:25 Desyrel - PO 150 mg HS JUAN Administration Assessment: 62 year old female with pmhx heroin abuse, COPD, DM, HTN, seizure disorder, pancreatic mass not currently on treatment, cholecystectomy, hysterectomy, vulvar skin cancer, and GERD, multiple blood transfusions presented from [facility] with generalized weakness and fatigue and hgb of 6.9. Plan: 1. Acute blood loss anemia, iron deficiency - For colonoscopy today - s/p 2uprbc 2. Pancreatic cysts - MRI report reviewed - Heme/onc following, defer for further work up 3. Seizure disorder - Continue Keppra 4. DM II - ISS, BGM ACHS - Levemir 25units hs 5. HTN - Lisinopril 5mg daily 6. DVT - Hold chemical AC for bleeding Visit type - Emergency Visit Emergency Visit: Yes ED Registration Date: 03/20/18 Care time: The patient presented to the Emergency Department on the above date and was hospitalized for further evaluation of their emergent condition. - New Patient This patient is new to me today: Yes Date on this admission: 03/21/18 - Critical Care Critical Care patient: No
[2018-03-21] MEDS: SODIUM CHLORIDE 1,000 ML IV SCH (09:53)
[2018-03-21] MEDS ORDERED: MAGNESIUM 1GM/D5W - 1 GM/100 ML IVPB IVPB ONE (10:00)
[2018-03-21] MEDS ORDERED: PROPOFOL 20 ML ONE ×2 (13:17→13:18)
[2018-03-21] MEDS: diphenhydrAMINE HCL 25 MG CAPSULE (FP) PO SCH (21:51)
[2018-03-21] MEDS: traZODone HCL 50 MG TABLET (FP) PO SCH (21:52)
[2018-03-21] MEDS: THIAMINE HCL 100 MG TABLET (FP) PO SCH (21:52)
[2018-03-21] MEDS: INSULIN (LEVEMIR) 100 UNITS/ML UNITS SQ SCH (21:54)
[2018-03-21] MEDS: hydrOXYzine PAMOATE 25 MG CAPSULE (FP) PO PRN (22:31)
--- NOTE | 2018-03-21 23:27 | PN ---
Progress Note (short form) - Note Progress Note: Patient seen and examined s/p colonoscopy---awaiting results AFVSS Cor: RSR, No murmurs, No gallops Lungs: Clear to P&A Abd: Soft, Normal bowel sounds, No organomegaly Ext:No significant edema Labs/Meds reviewed A/P 62 y/o patient with anemia low nl MCV/ferritin s/p colonoscopy---follow results MRI--pancreatic tail cyst--pseudocyst vs cystic nneoplasm . dilated EHBD--? physiologis, post surgical. Lt. adrenal adenoma will need EUS outpatient and f/u with GI team outpatient Will need f/u MRI for adrenal adenoma SIFE/LDH/B12/folate--nl
[2018-03-22] MEDS: DOCUSATE SODIUM 100 MG CAPSULE (FP) PO SCH ×3 (06:31→21:38)
[2018-03-22] MEDS: GABAPENTIN 300 MG CAPSULE (FP) PO SCH ×3 (06:39→21:32)
[2018-03-22] MEDS: INSULIN SLIDING SCALE (NOVOLOG) 1 VIAL SQ SCH ×4 (06:39→21:33)
[2018-03-22 07:23] LABS: BASO % 0.9 % (0-2.0); EOS % 3.5 % (0-4.5); HEMATOCRIT 26.5 % (32.4-45.2); HEMOGLOBIN 8.5 GM/dL (10.7-15.3); LYMPH % 28.8 % (8-40); MCH 26.7 pg (25.7-33.7); MCHC 32.2 g/dl (32.0-36.0); MEAN CELL VOLUME 83.1 fl (80-96); MEAN PLT VOLUME 8.1 fl (7.5-11.1); NEUT % 58.8 % (42.8-82.8); PLATELET COUNT 281 K/MM3 (134-434); RBC 3.19 M/mm3 (3.60-5.2); RDW 19.5 % (11.6-15.6); WHITE BLOOD COUNT 5.9 K/mm3 (4.0-10.0)
[2018-03-22] MEDS: ALBUTEROL SO4 2.5/IPRATROPIUM 0.5 INH SOL 3 ML VIAL.NEB. NEB SCH ×4 (07:54→21:10)
[2018-03-22 08:09] LABS: CHLORIDE 112 mmol/L (98-107); SODIUM 146 mmol/L (136-145)
[2018-03-22 08:12] LABS: ANION GAP 3 (8-16); BLOOD UREA NITROGEN 10 mg/dL (7-18); CO2 31 mmol/L (21-32); CREATININE 0.6 mg/dL (0.55-1.02); MAGNESIUM 1.9 mg/dL (1.8-2.4)
[2018-03-22 08:15] LABS: GLUCOSE,RANDOM 41 mg/dL (74-106)
[2018-03-22] MEDS: SODIUM CHLORIDE 1,000 ML IV SCH (09:22)
[2018-03-22] MEDS: levETIRAcetam 500 MG TABLET (FP) PO SCH ×2 (09:22→21:32)
[2018-03-22] MEDS: FERROUS SO4 325 MG TABLET (FP) PO SCH ×2 (09:22→21:32)
[2018-03-22] MEDS: clonazePAM 0.5 MG TABLET PO PRN ×2 (09:22→21:31)
[2018-03-22] MEDS: LISINOPRIL 5 MG TABLET (FP) PO SCH (09:22)
[2018-03-22] MEDS: POLYETHYLENE GLYCOL 3350 119 GM BTL PO SCH (09:22)
[2018-03-22] MEDS: PRENATAL VITAMINS W/ FOLIC ACID TABLET (FP) PO SCH (09:22)
[2018-03-22] MEDS ORDERED: PT OWN MED DRAWER 7, Y5N ONE ×2 (09:44→21:30)
[2018-03-22] MEDS: hydrOXYzine PAMOATE 25 MG CAPSULE (FP) PO PRN ×2 (09:45→21:31)
--- NOTE | 2018-03-22 10:02 | PN ---
Progress Note (short form) - Note Progress Note: feels fatigued/tired Cor: RSR, No murmurs, No gallops Lungs: Clear to P&A Abd: Soft, Normal bowel sounds, No organomegaly Ext:No significant edemaLast Vital Signs Temp Pulse Resp BP Pulse Ox 98.1 F 62 18 105/49 97 03/22/18 05:00 03/22/18 05:00 03/22/18 05:00 03/22/18 05:00 03/21/18 21:00 CBC, BMP 03/22/18 06:00 03/22/18 06:00 Current Medications Generic Name Dose Route Start Last Admin Trade Name Freq PRN Reason Stop Dose Admin Acetaminophen 650 mg 03/16/18 18:28 03/21/18 09:23 Tylenol - PO 650 mg Q6H PRN Administration FEVER Al Hydroxide/Mg Hydroxide 30 ml 03/16/18 18:29 03/18/18 20:04 Mylanta Oral Suspension - PO 30 ml Q6H PRN Administration DYSPEPSIA Albuterol/Ipratropium 1 amp 03/16/18 20:00 03/22/18 07:54 Duoneb - NEB 1 amp RQID JUAN Administration Clonazepam 0.25 mg 03/17/18 18:59 03/22/18 09:22 Klonopin - PO 0.25 mg Q12H PRN Administration ANXIETY Diphenhydramine HCl 25 mg 03/16/18 22:00 03/21/18 21:51 Benadryl - PO 25 mg HS JUAN Administration Docusate Sodium 100 mg 03/19/18 15:00 03/22/18 06:31 Colace - PO Not Given TID JUAN Ferrous Sulfate 325 mg 03/18/18 10:00 03/22/18 09:22 Feosol - PO 325 mg BID JUAN Administration Gabapentin 600 mg 03/16/18 22:00 03/22/18 06:39 Neurontin - PO 600 mg TID JUAN Administration Hydroxyzine Pamoate 50 mg 03/16/18 18:31 03/22/18 09:45 Vistaril - PO 50 mg Q4H PRN Administration AGITATION IV Flush 10 ml 03/19/18 06:21 03/21/18 06:00 Suzan-Cath Flush IVPUSH 10 ml PRN PRN Administration patency maintenance Sodium Chloride 1,000 mls @ 75 mls/hr 03/21/18 09:45 03/22/18 09:22 Normal Saline - IV Not Given ASDIR JUAN Insulin Aspart 1 vial 03/16/18 22:00 03/22/18 06:39 Novolog Vial Sliding Scale - SQ Not Given ACHS [facility] Protocol Insulin Detemir 25 units 03/16/18 22:00 03/21/18 21:54 Levemir Vial SQ 25 units HS JUAN Administration Levetiracetam 500 mg 03/16/18 22:00 03/22/18 09:22 Keppra - PO 500 mg BID JUAN Administration Lisinopril 5 mg 03/17/18 10:00 03/22/18 09:22 Prinivil PO 5 mg DAILY JUAN Administration Polyethylene Glycol 17 gm 03/19/18 15:00 03/22/18 09:22 Miralax (For Daily Use) - PO Not Given DAILY JUAN Multivit/Folic Acid/Iron 1 tab 03/18/18 10:00 03/22/18 09:22 Vitamins (Sjr) - PO 1 tab DAILY JUAN Administration Senna 2 tab 03/17/18 18:50 03/17/18 21:19 Senna - PO 2 tab HS PRN Administration CONSTIPATION Thiamine HCl 100 mg 03/17/18 22:00 03/21/18 21:52 Vitamin B1 - PO 100 mg HS JUAN Administration Trazodone HCl 150 mg 03/17/18 20:38 03/21/18 21:52 Desyrel - PO 150 mg HS JUAN Administration 62 y/o patient with anemia low nl MCV/ferritin s/p colonoscopy---follow results MRI--pancreatic tail cyst--pseudocyst vs cystic nneoplasm . dilated EHBD--? physiologis, post surgical. Lt. adrenal adenoma will need EUS outpatient and f/u with GI team outpatient Will need f/u MRI for adrenal adenoma SIFE/LDH/B12/folate--nl
--- NOTE | 2018-03-22 12:48 | PN ---
Physical Exam: SUBJECTIVE: Patient seen and examined. She appears fatigued today, using oxygen. Denies bleeding, feels sob. Events: Hypoglycemic this AM, asymptomatic, improved with juice OBJECTIVE: Vital Signs Period Temp Pulse Resp BP Sys/Fallon Pulse Ox Last 24 Hr 97.5 F-98.9 F 62-78 15-20 105-162/49-92 0-100 PE Neuro: alert, awake, cn 2-12intact Pulm: diminished, mild sob + NC CV: s1 s2 rrr no mrg Abd: s nt nd + bs Ext: warm, no le edema Skin: RCW port cdi Laboratory Results - last 24 hr 03/19/18 03/19/18 03/21/18 06:35 06:35 16:16 WBC RBC Hgb Hct 29.9 L MCV MCH MCHC RDW Plt Count MPV Absolute Neuts (auto) Neutrophils % Lymphocytes % Monocytes % Eosinophils % Basophils % Nucleated RBC % Sodium Potassium Chloride Carbon Dioxide Anion Gap BUN Creatinine POC Glucometer 101 Random Glucose Calcium Magnesium Iepjk-3-Mgmfxbwcu (%) Cancelled Fjeod-1-Hcffuuset (%) Cancelled Beta Globulins 0.9 Beta Globulins (%) Cancelled Gamma Globulins (%) Cancelled M-Oscar % Cancelled Folate 1494 Folate Hemolysate 446.7 LOIS & SPEP Interp Total Protein (LOIS) 5.2 L Albumin (LOIS) 3.0 Albumin/Globulin (LOIS) 1.4 Cdurn-1-Voftdkfxl LOIS 0.2 Qvuco-8-Dwngvydhs LOIS 0.6 Gamma Globulins (LOIS) 0.5 LOIS M-Oscar Not observed LOIS Comments IEP IgG 493 L IEP IgA 139 IEP IgM 52 Ref Test Comments Cancelled 03/21/18 03/22/18 03/22/18 21:48 06:00 06:00 WBC 5.9 RBC 3.19 L Hgb 8.5 L Hct 26.5 L MCV 83.1 MCH 26.7 MCHC 32.2 RDW 19.5 H Plt Count 281 MPV 8.1 Absolute Neuts (auto) 3.5 Neutrophils % 58.8 Lymphocytes % 28.8 Monocytes % 8.0 Eosinophils % 3.5 Basophils % 0.9 Nucleated RBC % 0 Sodium 146 H Potassium 4.0 Chloride 112 H Carbon Dioxide 31 Anion Gap 3 L BUN 10 Creatinine 0.6 POC Glucometer 134 Random Glucose 41 L* Calcium 8.0 L Magnesium 1.9 Nmfpw-9-Lhactztid (%) Oukxj-5-Ekdlprjoo (%) Beta Globulins Beta Globulins (%) Gamma Globulins (%) M-Oscar % Folate Folate Hemolysate LOIS & SPEP Interp Total Protein (LOIS) Albumin (LOIS) Albumin/Globulin (LOIS) Krhmc-6-Zzwtolyjv LOIS Duybv-0-Fbfxharhx LOIS Gamma Globulins (LOIS) LOIS M-Oscar LOIS Comments IEP IgG IEP IgA IEP IgM Ref Test Comments Active Medications Generic Name Dose Route Start Last Admin Trade Name Freq PRN Reason Stop Dose Admin Acetaminophen 650 mg 03/16/18 18:28 03/21/18 09:23 Tylenol - PO 650 mg Q6H PRN Administration FEVER Al Hydroxide/Mg Hydroxide 30 ml 03/16/18 18:29 03/18/18 20:04 Mylanta Oral Suspension - PO 30 ml Q6H PRN Administration DYSPEPSIA Albuterol/Ipratropium 1 amp 03/16/18 20:00 03/22/18 07:54 Duoneb - NEB 1 amp RQID JUAN Administration Clonazepam 0.25 mg 03/17/18 18:59 03/22/18 09:22 Klonopin - PO 0.25 mg Q12H PRN Administration ANXIETY Diphenhydramine HCl 25 mg 03/16/18 22:00 03/21/18 21:51 Benadryl - PO 25 mg HS JUAN Administration Docusate Sodium 100 mg 03/19/18 15:00 03/22/18 06:31 Colace - PO Not Given TID JUAN Ferrous Sulfate 325 mg 03/18/18 10:00 03/22/18 09:22 Feosol - PO 325 mg BID JUAN Administration Gabapentin 600 mg 03/16/18 22:00 03/22/18 06:39 Neurontin - PO 600 mg TID JUAN Administration Hydroxyzine Pamoate 50 mg 03/16/18 18:31 03/22/18 09:45 Vistaril - PO 50 mg Q4H PRN Administration AGITATION IV Flush 10 ml 03/19/18 06:21 03/21/18 06:00 Suzan-Cath Flush IVPUSH 10 ml PRN PRN Administration patency maintenance Sodium Chloride 1,000 mls @ 75 mls/hr 03/21/18 09:45 03/22/18 09:22 Normal Saline - IV Not Given ASDIR [facility] Insulin Aspart 1 vial 03/16/18 22:00 03/22/18 11:05 Novolog Vial Sliding Scale - SQ Not Given ACHS [facility] Protocol Insulin Detemir 25 units 03/16/18 22:00 03/21/18 21:54 Levemir Vial SQ 25 units HS JUAN Administration Levetiracetam 500 mg 03/16/18 22:00 03/22/18 09:22 Keppra - PO 500 mg BID JUAN Administration Lisinopril 5 mg 03/17/18 10:00 03/22/18 09:22 Prinivil PO 5 mg DAILY JUAN Administration Polyethylene Glycol 17 gm 03/19/18 15:00 03/22/18 09:22 Miralax (For Daily Use) - PO Not Given DAILY JUAN Multivit/Folic Acid/Iron 1 tab 03/18/18 10:00 03/22/18 09:22 Vitamins (Sjr) - PO 1 tab DAILY JUAN Administration Senna 2 tab 03/17/18 18:50 03/17/18 21:19 Senna - PO 2 tab HS PRN Administration CONSTIPATION Thiamine HCl 100 mg 03/17/18 22:00 03/21/18 21:52 Vitamin B1 - PO 100 mg HS JUAN Administration Trazodone HCl 150 mg 03/17/18 20:38 03/21/18 21:52 Desyrel - PO 150 mg HS JUAN Administration MRI: pancreatic tail cyst. pseudocyst vs cystic neoplasm with dilated EHBD, Left. adrenal adenoma Assessment: 62 year old female with pmhx heroin abuse, COPD, DM, HTN, seizure disorder, pancreatic mass not currently on treatment, cholecystectomy, hysterectomy, vulvar skin cancer, and GERD, multiple blood transfusions presented from [facility] with generalized weakness and fatigue and hgb of 6.9. Plan: 1. Acute blood loss anemia, iron deficiency - Colonoscopy 03/21, awaiting pathology results, no overt signs of bleeding, gastritis found - Drop in hgb today, will trend, transfuse if <8 - s/p 2uprbc 2. Pancreatic cysts - MRI above, will need follow up - Will need EUS as outpt with GI follow up - Defer to heme/onc for further recs 3. Seizure disorder - Continue Keppra 4. DM II - ISS, BGM ACHS - Levemir 25units hs 5. HTN - Lisinopril 5mg daily 6. DVT - Hold chemical AC for bleeding 7. COPD, sob - Using oxygen - PT Visit type - Emergency Visit Emergency Visit: Yes ED Registration Date: 03/20/18 Care time: The patient presented to the Emergency Department on the above date and was hospitalized for further evaluation of their emergent condition. - New Patient This patient is new to me today: No - Critical Care Critical Care patient: No
--- NOTE | 2018-03-22 13:56 | PROC ---
Endoscopy Procedure Endoscopy procedure completed. Please see scanned procedure report.
[2018-03-22] MEDS: traZODone HCL 50 MG TABLET (FP) PO SCH (21:32)
[2018-03-22] MEDS: THIAMINE HCL 100 MG TABLET (FP) PO SCH (21:32)
[2018-03-22] MEDS: diphenhydrAMINE HCL 25 MG CAPSULE (FP) PO SCH (21:32)
[2018-03-22] MEDS: INSULIN (LEVEMIR) 100 UNITS/ML UNITS SQ SCH (21:34)
[2018-03-23] MEDS: INSULIN SLIDING SCALE (NOVOLOG) 1 VIAL SQ SCH ×2 (06:07→12:03)
[2018-03-23] MEDS: GABAPENTIN 300 MG CAPSULE (FP) PO SCH ×2 (06:14→14:08)
[2018-03-23] MEDS: DOCUSATE SODIUM 100 MG CAPSULE (FP) PO SCH ×2 (06:14→14:08)
[2018-03-23] MEDS: ALBUTEROL SO4 2.5/IPRATROPIUM 0.5 INH SOL 3 ML VIAL.NEB. NEB SCH ×2 (07:55→11:39)
[2018-03-23 08:11] LABS: BASO % 0.9 % (0-2.0); EOS % 5.2 % (0-4.5); HEMATOCRIT 28.1 % (32.4-45.2); HEMOGLOBIN 8.9 GM/dL (10.7-15.3); LYMPH % 25.6 % (8-40); MCH 26.4 pg (25.7-33.7); MCHC 31.8 g/dl (32.0-36.0); MEAN CELL VOLUME 83.2 fl (80-96); MEAN PLT VOLUME 8.4 fl (7.5-11.1); MONO % 9.6 % (3.8-10.2); NEUT % 58.7 % (42.8-82.8); PLATELET COUNT 280 K/MM3 (134-434); RBC 3.38 M/mm3 (3.60-5.2); RDW 20.4 % (11.6-15.6); WHITE BLOOD COUNT 5.1 K/mm3 (4.0-10.0)
[2018-03-23 08:24] LABS: CHLORIDE 109 mmol/L (98-107); POTASSIUM 3.7 mmol/L (3.5-5.1); SODIUM 145 mmol/L (136-145)
[2018-03-23 08:43] LABS: ANION GAP 6 (8-16); BLOOD UREA NITROGEN 9 mg/dL (7-18); CALCIUM 8.9 mg/dL (8.5-10.1); CO2 30 mmol/L (21-32); CREATININE 0.5 mg/dL (0.55-1.02); GLUCOSE,RANDOM 60 mg/dL (74-106)
[2018-03-23] MEDS ORDERED: PT OWN MED DRAWER 7, Y5N ONE (09:37)
[2018-03-23] MEDS: FERROUS SO4 325 MG TABLET (FP) PO SCH (10:30)
[2018-03-23] MEDS: PRENATAL VITAMINS W/ FOLIC ACID TABLET (FP) PO SCH (10:30)
[2018-03-23] MEDS: levETIRAcetam 500 MG TABLET (FP) PO SCH (10:30)
[2018-03-23] MEDS: POLYETHYLENE GLYCOL 3350 119 GM BTL PO SCH (10:31)
[2018-03-23] MEDS: LISINOPRIL 5 MG TABLET (FP) PO SCH (10:31)
[2018-03-23] MEDS: clonazePAM 0.5 MG TABLET PO PRN (10:32)
--- NOTE | 2018-03-23 11:22 | PATH ---
Surgical Pathology Report Patient Name: USMAN MANCILLA [facility] [place]. Rec. #: [id number] /Age/Gender: 1955 (Age: 62) / F Account: [id number] Location: [facility]/SURG Taken: 03/21/2018 Received: 03/22/2018 Reported: 03/23/2018 Physicians: Brittany Gamboa ACNP Specimen(s) Received A: BX 2ND PORTION DUODENUM B: BX ANTRUM AND BODY C: POLYP TRANSVERSE COLON #1 D: POLYP TRANSVERSE COLON #2 E: POLYP SIGMOID Clinical History Anemia Postoperative diagnosis: Gastritis, colon polyps Final Diagnosis A. DUODENUM, SECOND PORTION, BIOPSY: DUODENAL MUCOSA WITHOUT SIGNIFICANT PATHOLOGIC FINDINGS. B. STOMACH, ANTRUM AND BODY, BIOPSY: GASTRIC ANTRAL AND BODY MUCOSA WITH MILD CHRONIC GASTRITIS AND FOCAL INTESTINAL METAPLASIA. IMMUNOHISTOCHEMICAL STAIN FOR H. PYLORI IS NEGATIVE. C. TRANSVERSE COLON, POLYP #1, POLYPECTOMY: TUBULAR ADENOMA. D. TRANSVERSE COLON, POLYP #2, POLYPECTOMY: TUBULAR ADENOMA. E. SIGMOID COLON, POLYP, POLYPECTOMY: HYPERPLASTIC POLYP. Electronically Signed Cindy Alvarez M.D. Gross Description A. Received in formalin, labeled "biopsy second portion of duodenum" are 3 torres, irregular portions of soft tissue ranging from 0.2-0.4 cm. in greatest dimension. The specimens are submitted in toto in one cassette. B. Received in formalin, labeled "biopsy antrum and body" is a torres, irregular portion of soft tissue measuring 0.5 cm. in greatest dimension. The specimen is submitted in toto in one cassette. C. Received in formalin, labeled "biopsy transverse colon polyp #1" is a torres, irregular portion of soft tissue measuring 0.4 cm. in greatest dimension. The specimen is submitted in toto in one cassette. D. Received in formalin, labeled "biopsy transverse colon polyp #2" is a torres, irregular portion of soft tissue measuring 0.4 cm. in greatest dimension. The specimen is submitted in toto in one cassette. E. Received in formalin, labeled "biopsy sigmoid polyp" is a torres, irregular portion of soft tissue measuring 0.3 cm. in greatest dimension. The specimen is submitted in toto in one cassette. 03/22/2018 saudi03/22/2018
[2018-03-23 11:51] VITALS: BP 123/62; PULSE 70; TEMP 98.1
--- NOTE | 2018-03-23 15:42 | DS ---
Physical Exam: SUBJECTIVE: Patient seen and examined OBJECTIVE: Vital Signs Period Temp Pulse Resp BP Sys/Fallon Pulse Ox Last 24 Hr 98 F-98.7 F 61-79 18-18 123-159/61-75 95-95 PHYSICAL EXAM GENERAL: The patient is awake, alert, and fully oriented, in no acute distress. HEAD: Normal with no signs of trauma. EYES: PERRL, extraocular movements intact, sclera anicteric, conjunctiva clear. ENT: Ears normal, nares patent, oropharynx clear without exudates, moist mucous membranes. NECK: Trachea midline, full range of motion, supple. LUNGS: Breath sounds equal, clear to auscultation bilaterally, no wheezes, no crackles, no accessory muscle use. HEART: Regular rate and rhythm, S1, S2 without murmur, rub or gallop. ABDOMEN: Soft, nontender, nondistended, normoactive bowel sounds, no guarding, no rebound, no hepatosplenomegaly, no masses. EXTREMITIES: 2+ pulses, warm, well-perfused, no edema. NEUROLOGICAL: Cranial nerves II through XII grossly intact. Normal speech, gait not observed. PSYCH: Normal mood, normal affect. SKIN: Warm, dry, normal turgor, no rashes or lesions noted. LABS Laboratory Results - last 24 hr 03/22/18 03/22/18 03/23/18 16:32 21:27 06:06 WBC RBC Hgb Hct MCV MCH MCHC RDW Plt Count MPV Absolute Neuts (auto) Neutrophils % Lymphocytes % Monocytes % Eosinophils % Basophils % Nucleated RBC % Sodium Potassium Chloride Carbon Dioxide Anion Gap BUN Creatinine POC Glucometer 169 183 74 Random Glucose Calcium 03/23/18 03/23/18 03/23/18 06:30 06:30 12:00 WBC 5.1 RBC 3.38 L Hgb 8.9 L Hct 28.1 L MCV 83.2 MCH 26.4 MCHC 31.8 L RDW 20.4 H Plt Count 280 MPV 8.4 Absolute Neuts (auto) 3.0 Neutrophils % 58.7 Lymphocytes % 25.6 Monocytes % 9.6 Eosinophils % 5.2 H Basophils % 0.9 Nucleated RBC % 0 Sodium 145 Potassium 3.7 Chloride 109 H Carbon Dioxide 30 Anion Gap 6 L BUN 9 Creatinine 0.5 L POC Glucometer 93 Random Glucose 60 L Calcium 8.9 HOSPITAL COURSE: Date of Admission:03/20/18 Date of Discharge: 03/23/18 Discharge Summary Reason For Visit: ANEMIA Current Active Problems Anemia (Acute) Normocytic hypochromic anemia (Acute) Condition: Stable - Instructions Diet, Activity, Other Instructions: Please return to the ED for any new, persistent, or worsening symptoms. Follow up with your PCP in 1 week You will need follow up of your abdominal MRI, referral for Dr. Gibbs is enclosed in discharge papers. Follow up on possible non specific pancreatic psudocysts or neoplasm. You will also need follow up with GI doctor, Dr. Bar for possible endoscopic ultra sound and pathology results of your colonoscopy. Dr. Bar information enclosed in paper work. Continue medications as listed on home discharge list Referrals: Belle Ivy MD [Primary Care Provider] - 1 Week (Please follow up and schedule MRI) Valentín Bar MD [Staff Physician] - ([employer]) Arvind Gibbs MD [Staff Physician] - (hematology, please make appointment for follow up) Disposition: TRANSFER ACUTE CARE/OTHER HOSP - Home Medications Comprehensive Discharge Medication List: Ambulatory Orders Albuterol Sulfate Inhaler - [Ventolin HFA Inhaler -] 2 inh PO Q4H PRN 03/11/18 Gabapentin [Neurontin] 600 mg PO TID 03/11/18 Insulin Detemir [Levemir Flextouch] 25 unit SQ HS 03/11/18 Ipratropium/Albuterol Sulfate [Combivent Respimat 20-100 Mcg] 4 gm IH BID Metformin HCl [Glucophage] 500 mg PO BID 03/11/18 Trazodone HCl 100 mg PO HS 03/11/18 levETIRAcetam [Keppra -] 500 mg PO BID 03/11/18 Acetaminophen [Tylenol .Regular Strength -] 650 mg PO Q6H PRN tablet 03/17/18 Albuterol 2.5/Ipratropium 0.5 [Duoneb -] 1 amp NEB RQID amp 03/17/18 Insulin (Levemir) [Levemir Vial] 25 units SQ HS units 03/17/18 Insulin Sliding Scale [Novolog Vial Sliding Scale -] 1 vial SQ ACHS units 03/17 Lisinopril [Prinivil] 5 mg PO DAILY tablet 03/17/18 Mag Hydrox/Al Hydrox/Simeth [Mylanta Oral Suspension -] 30 ml PO Q6H PRN cup Vitamins (Sjr) - 1 tab PO DAILY tablet 03/17/18 Thiamine HCl [Vitamin B1 -] 100 mg PO HS tablet 03/17/18 Tizanidine HCl 2 mg PO Q8H PRN tablet 03/17/18 hydrOXYzine PAMOATE [Vistaril -] 50 mg PO Q4H PRN capsule 03/17/18 traZODone HCL [Desyrel -] 150 mg PO HS tablet 03/17/18 - Discharge Referral [facility]erred to [facility] No
== END 2018-03-23 16:36 | disposition home or self-care (01) | DRG 663 ==
LOC: JER 13:32 → JERBED 18:04 → J7W 03-17 20:05 → OBSVTOIN 03-20 08:10 → J7W 03-20 15:12
PROVIDERS: ADMIT Internal Medicine; ATTEND Nurse Practitioner Acute Care
PROC: 30233N1 Transfusion of Nonautologous Red Blood Cells into Peripheral Vein, Percutaneous Approach (ICD-10-PCS; 2018-03-20)
PROC: 0DD68ZX Extraction of Stomach, Via Natural or Artificial Opening Endoscopic, Diagnostic (ICD-10-PCS; 2018-03-21)
PROC: 0DBN8ZX Excision of Sigmoid Colon, Via Natural or Artificial Opening Endoscopic, Diagnostic (ICD-10-PCS; 2018-03-21)
PROC: 0DBL8ZX Excision of Transverse Colon, Via Natural or Artificial Opening Endoscopic, Diagnostic (ICD-10-PCS; 2018-03-21)
PROC: 0DD98ZX Extraction of Duodenum, Via Natural or Artificial Opening Endoscopic, Diagnostic (ICD-10-PCS; principal; 2018-03-21 12:45)
DX: D50.9 Iron deficiency anemia, unspecified (principal); D62 Acute posthemorrhagic anemia; I10 Essential (primary) hypertension; G40.909 Epilepsy, unspecified, not intractable, without status epilepticus; F11.20 Opioid dependence, uncomplicated; E11.9 Type 2 diabetes mellitus without complications; F41.9 Anxiety disorder, unspecified; K21.9 Gastro-esophageal reflux disease without esophagitis; J44.9 Chronic obstructive pulmonary disease, unspecified; K29.70 Gastritis, unspecified, without bleeding; K86.2 Cyst of pancreas; D73.4 Cyst of spleen; D35.02 Benign neoplasm of left adrenal gland; E83.42 Hypomagnesemia; K63.5 Polyp of colon; K64.8 Other hemorrhoids; Z85.828 Personal history of other malignant neoplasm of skin; Z87.891 Personal history of nicotine dependence; Z88.0 Allergy status to penicillin
CPT/HCPCS: 36415; 36430; 71045-TC-FY; 74018-TC-FY; 74177-TC; 74183-TC; 80048; 80053; 80307; 81003; 82272; 82607; 82728; 82747; 82784; 82962; 83010; 83540; 83550; 83615; 83735; 84155; 84165; 84439; 84443; 85014; 85025; 85027; 85044; 85610; 85730; 86334; 86850; 86900; 86901; 86922; 87045; 87046; 87086; 88305-TC; 93005; 93010; 94640; 94761; 97116-GP; 97161-GP; 99285-25; G0378; J0131; J7030; J7620; P9038; P9058